=== PATIENT | male | born 1990 | race Caucasian/White ===

== ENCOUNTER → 2022-07-17 15:48 | Outpatient (BNVA) | payer SELFPAY | PROVIDERS: Visit Provider Emergency Medicine | DX: S99.922A Unspecified injury of left foot, initial encounter (principal); S99.912A Unspecified injury of left ankle, initial encounter | CPT/HCPCS: 73610; 73630 ==

== ENCOUNTER 2022-10-01 09:53 | Emergency (ER) | payer MEDICAID, SELFPAY ==
[2022-10-01 10:00] VITALS: BP 133/90; PULSE 107; RESP 16; TEMP 36.4; O2SAT 96; BMI 28.7
--- NOTE | 2022-10-01 10:10 | W.ED.ABDPA2 ---
Documented by User: MARKO Morel 10/02/22 07:27 HPI - Abdominal Pain General: Chief Complaint: Abdominal Pain Stated Complaint: abd pain Time Seen by Provider: 10/01/22 09:57 History of Present Illness: Patient is a 32-year-old male comes to the ED with abdominal pain. Patient has a history of H. pylori and stomach ulcers. He is not currently taking any daily PPI or antiacid medication. Abdominal pain started 4 days ago. Pain is located in the epigastric region. Pain worsens at night when he is laying down. He rates the current pain a 9 out of 10. Endorses having some nausea and one episode of emesis since onset of symptoms. Denies any fevers, diarrhea, constipation, bloody stool or black stools. Associated Symptoms: Reports nausea and vomiting; Denies chills, constipation, diarrhea, dysuria, fever(s), hematochezia, hematuria and melena Review of Systems Const: Denies: fever(s), chills or fatigue Eyes: Denies: change in vision or eye discomfort ENMT: Denies: throat pain, odynophagia, nasal discharge or nasal congestion Card: Denies: chest pain, palpitations, edema, swelling of feet/ankles, dyspnea on exertion or orthopnea Resp: Denies: dyspnea, productive cough or non-productive cough GI: Reports: abdominal pain (Epigastric pain), nausea and vomiting; Denies: diarrhea, constipation, hematochezia or melena : Denies: flank pain, difficulty urinating, dysuria or hematuria Musc: Denies: neck pain, back pain or extremity swelling Skin/Breast: Denies: rash or new lesions Neuro: Denies: headache(s), numbness in extremities or weakness in extremities PFS ED PFSH: Medical History ADHD (attention deficit hyperactivity disorder) Athlete's foot Dental caries Onychomycosis Psychiatric care Family History Mother CAD (coronary artery disease) Cancer lymphatic Denies family history of Diabetes Clotting disorder Dementia Hyperlipidemia Chronic kidney disease (CKD) Anesthesia complication Bleeding disorder Lung disease Hypertension Stroke Social History Smoking and tobacco status: never smoked Smoking risk assessment/counseling performed?: No Alcohol intake: never Desire information about alcohol rehabilitation?: No Counseling given: No Desire information about substance/drug rehabilitation?: No Counseling given: No Adopted: No Caregiver/support person: No Lives independently: Yes Marital status: Single Current occupational status: employed Current occupation: [employer] Current gender identity: Male Physical Exam Const: COMMON NORMALS: no acute distress, patient oriented x3 and alert HENMT: COMMON NORMALS: normocephalic HEAD & SCALP: normocephalic MOUTH: Normal oral and palatal mucosa present THROAT: posterior oropharynx normal and uvula midline Neck/C-Spine: COMMON NORMALS: supple GENERAL: Yes normal visual inspection Resp: COMMON NORMALS: normal respiratory effort, No retractions, No use of accessory muscles and clear to auscultation bilaterally AUSCULTATION: clear to auscultation bilaterally Cardio: COMMON NORMALS: regular rate, regular rhythm, S1 normal heart sound present, S2 normal heart sound present, No gallops present (Cardio), No clicks present (Cardio), No murmurs present (Cardio) and Peripheral pulses 2+ throughout RATE: regular rate RHYTHM: regular rhythm HEART SOUNDS: S1 normal heart sound present and S2 normal heart sound present PERIPHERAL PULSES: Peripheral pulses 2+ throughout GI: COMMON NORMALS: Normal to inspection, nondistended, normoactive bowel sounds present, Soft to palpation and no masses PALPATION: Yes Soft to palpation and Yes Tenderness to palpation present (GI) (Epigastric region and right upper quadrant) : COMMON NORMALS: Yes no CVA tenderness BLADDER/KIDNEY EXAM: Yes no CVA tenderness Back/Pelvis: COMMON NORMALS: no CVA tenderness Extremity: COMMON NORMALS: normal to inspection Neuro: COMMON NORMALS: patient oriented x3 SENSORIUM/ORIENTATION: Yes alert GAIT: Yes Normal gait present Skin: GENERAL SKIN EXAM: dry skin Course Vital Signs: Vital signs: Vital Signs Temperature 97.6 F 10/01/22 10:00 Pulse Rate 81 10/01/22 13:11 Respiratory Rate 18 10/01/22 11:34 Blood Pressure 117/74 10/01/22 13:11 Pulse Oximetry 97 10/01/22 13:11 Oxygen Delivery Me thod 10/01/22 11:46 MDM - Abdominal Pain Medical Decision Making Patient is a 32-year-old male comes to the ED with epigastric pain. He has a history of gastric ulcers and H. pylori. He describes it as a burning pain that worsens after he eats or lays flat. Patient appears nontoxic and in no acute distress or pain. He has some mild epigastric and right upper quadrant tenderness, but the rest of exam is benign. CBC and CMP were unremarkable. Ultrasound of the right upper quadrant showed no acute findings. Troponin was negative. EKG showed no acute findings. Patient was given a dose of GI cocktail and Protonix and his symptoms improved. Patient was stable for discharge home and diagnosed with gastritis. He was sent home with a prescription for Protonix and told to follow-up with his PCP in the next week. Return to ED precautions given. Patient understood and agreed with plan. Lab Data I reviewed the patient's lab results. : 10/01/22 10:16 10/01/22 10:16 Labs/Radiology: Radiology Impressions Abdomen Ultrasound 10/01/22 11:11 IMPRESSION: 1. Normal gallbladder. No bile duct dilatation. 2. Mild hepatomegaly and hepatic steatosis. 3. No ascites. Laboratory Results WBC 9.7 10^3/uL (4.0-10.0) 10/01/22 10:16 RBC 5.47 10^6/uL (4.1-5.3) H 10/01/22 10:16 Hgb 16.4 g/dL (11.7-16.6) 10/01/22 10:16 Hct 47.2 % (42.0-52.0) 10/01/22 10:16 MCV 86.3 fl (80-94) 10/01/22 10:16 MCH 30.0 pg (28.0-34.0) 10/01/22 10:16 MCHC 34.7 g/dL (30.0-36.0) 10/01/22 10:16 RDW 12.4 % (12.1-15.1) 10/01/22 10:16 Plt Count 457 10^3/cmm (130-400) H 10/01/22 10:16 MPV 9.0 fL (7.4-10.4) 10/01/22 10:16 Neut % (Auto) 63.2 % 10/01/22 10:16 Lymph % (Auto) 20.3 % 10/01/22 10:16 Shelby % (Auto) 9.0 % 10/01/22 10:16 Eos % (Auto) 6.7 % 10/01/22 10:16 Baso % (Auto) 0.5 % 10/01/22 10:16 Neut # (Auto) 6.11 10^3/uL (1.8-7.7) 10/01/22 10:16 Lymph # (Auto) 2.0 10^3/uL (0.8-4.8) 10/01/22 10:16 Shelby # (Auto) 0.9 10^3/uL (0.2-0.9) 10/01/22 10:16 Eos # (Auto) 0.7 10^3/uL (0.0-0.8) 10/01/22 10:16 Baso # (Auto) 0.1 10^3/uL (0.0-0.1) 10/01/22 10:16 Nucleated RBC % (auto) 0 % 10/01/22 10:16 Nucleated RBCs # 0.0 /100WBC 10/01/22 10:16 Sodium 137 mmol/L (136-145) 10/01/22 10:16 Potassium 3.8 mmol/L (3.5-5.1) 10/01/22 10:16 Chloride 98 mmol/L (98-107) 10/01/22 10:16 Carbon Dioxide 26 mmol/L (22-29) 10/01/22 10:16 Anion Gap 16.8 (5-19) 10/01/22 10:16 BUN 20 mg/dL (6-20) 10/01/22 10:16 Creatinine 0.7 mg/dL (0.7-1.2) 10/01/22 10:16 GFR Calculation 129.1 mL/min (90-130) 10/01/22 10:16 Glucose 102 mg/dL (65-115) 10/01/22 10:16 Calculated Osmolality 287 mOsm/kg (285-295) 10/01/22 10:16 Calcium 9.5 mg/dL (8.5-10.5) 10/01/22 10:16 Total Bilirubin 1.6 mg/dL (0.15-1.2) H 10/01/22 10:16 AST 12 U/L (0-40) 10/01/22 10:16 ALT 18 U/L (0-41) 10/01/22 10:16 Alkaline Phosphatase 90 U/L (40-130) 10/01/22 10:16 Troponin T Baseline 6 ng/L (0-15) 10/01/22 10:16 Troponin T 120 Minute 6.00 ng/L (0-15) 10/01/22 12:40 Delta Troponin T 0 ABS# (0-10) 10/01/22 12:40 Total Protein 7.6 g/dL (6.6-8.7) 10/01/22 10:16 Albumin 4.5 g/dL (3.5-5.2) 10/01/22 10:16 Globulin 3.1 g/dL (1.3-4.6) 10/01/22 10:16 Lipase 52 U/L (13-60) 10/01/22 10:16 H. pylori IgG Antibody Negative (Negative) 10/01/22 10:16 EKG Data EKG 1: EKG interpretation date: 10/01/22 Computer generated interpretation: [place] [address] Electrocardiograph Report Signed Patient: Chuck Jamison Unit #: [id number] : 1990 Age/Sex: 32 / M ADM Date: 10/01/22 Loc: ER Room/Bed: Attending Dr: Ordering Provider/Ordering MD: Mckay Reed Date of Service: 10/01/22 Procedure(s): ECG 12 lead EKG Accession Number(s): [id number] Report Number: [id number] ? [facility] ? Test Date:? ? 2022-10-01 Pat Name: ? ? Chuck Jamison ? Department: ? Patient ID: ? [id number] ? Room: ? Gender: ? ? ? Male ? 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 Requested By: Mckay Reed Order Number: [id number]? Reading : ? Jose Hirsch M.D. ? Measurements Intervals? [place]? Rate: ? 70 ? P:? 47 ND: ? 167? QRS:? 45 QRSD: ? 96 ? T:? 35 QT: ? 370? QTc:? 401? Interpretive Statements SINUS RHYTHM Compared to ECG 10/01/2022 10:50:44 No significant changes Electronically Signed On 10-01-2022 21:53:40 CDT by Jose Hirsch M.D. [id number] Dictated By: Jose Hirsch MD Signed By: Jose Hirsch MD Signed Date/Time: 10/01/222154 DD/ 1208 Discharge Plan Discharge Patient Disposition: Home Clinical Impression: Gastritis Qualifiers: Gastritis type: unspecified gastritis Chronicity: unspecified Gastritis bleeding: presence of bleeding unspecified Qualified Code(s): K29.70 - Gastritis, unspecified, without bleeding Condition: Stable Prescriptions: New pantoprazole 40 mg tablet,delayed release (DR/EC) 40 mg PO DAILY Qty: 30 0RF ondansetron 4 mg tablet,disintegrating 4 mg PO Q8H PRN (Reason: nausea and vomiting) Qty: 15 0RF No Action clotrimazole 1 % cream 1 applic topical TID Qty: 90 1RF Adderall 30 mg tablet 30 mg PO QAM terbinafine HCl 250 mg tablet 250 mg PO QAM Discharge Orders: Discharge ED (Routine); Ordered 10/01/22 Ordered By: Mckay Reed Discharge Diet: Regular Discharge Activity: Resume usual activity Patient Instructions: Gastritis (ED) Activity Restrictions/Additional Instructions: Follow-up with medical provider as directed in the next 5 to 7 days reevaluation. Take medications as prescribed. Return to the ER or your medical provider if condition worsens. Please read and understand discharge instructions. Thank you for choosing [facility] for your healthcare needs today. Please realize this is an emergency room and that we are providing you with a medical screening exam and this may not be complete and all inclusive of all the testing and or work up that you may need to determine your ailment or severity of your illness. It is very important that you follow up as instructed or that you return to the Emergency Department should you have concerns or if your condition changes or worsens in any way. Stand Alone Forms: Work/School Release Coding Level of Care Code ED Cow Washer for Chg Fwd Exam Comprehensive Documented by User: Carrington Rivas DO 10/03/22 07:26 HPI - Abdominal Pain General: Chief Complaint: Abdominal Pain Stated Complaint: abd pain Time Seen by Provider: 10/01/22 09:57 [facility] ED PFSH: Medical History ADHD (attention deficit hyperactivity disorder) Athlete's foot Dental caries Onychomycosis Psychiatric care Family History Mother CAD (coronary artery disease) Cancer lymphatic Denies family history of Diabetes Clotting disorder Dementia Hyperlipidemia Chronic kidney disease (CKD) Anesthesia complication Bleeding disorder Lung disease Hypertension Stroke Social History Smoking and tobacco status: never smoked Smoking risk assessment/counseling performed?: No Alcohol intake: never Desire information about alcohol rehabilitation?: No Counseling given: No Desire information about substance/drug rehabilitation?: No Counseling given: No Adopted: No Caregiver/support person: No Lives independently: Yes Marital status: Single Current occupational status: employed Current occupation: [employer] Current gender identity: Male Course Vital Signs: Vital signs: Vital Signs Temperature 97.6 F 10/01/22 10:00 Pulse Rate 81 10/01/22 13:11 Respiratory Rate 18 10/01/22 11:34 Blood Pressure 117/74 10/01/22 13:11 Pulse Oximetry 97 10/01/22 13:11 Oxygen Delivery Me thod 10/01/22 11:46 MDM - Abdominal Pain Medical Decision Making Patient is a 32-year-old male comes to the ED with epigastric pain. He has a history of gastric ulcers and H. pylori. He describes it as a burning pain that worsens after he eats or lays flat. Patient appears nontoxic and in no acute distress or pain. He has some mild epigastric and right upper quadrant tenderness, but the rest of exam is benign. CBC and CMP were unremarkable. Ultrasound of the right upper quadrant showed no acute findings. Troponin was negative. EKG showed no acute findings. Patient was given a dose of GI cocktail and Protonix and his symptoms improved. Patient was stable for discharge home and diagnosed with gastritis. He was sent home with a prescription for Protonix and told to follow-up with his PCP in the next week. Return to ED precautions given. Patient understood and agreed with plan. Chart reviewed and patient discussed with midlevel. Agree with assessment and plan. Lab Data : 10/01/22 10:16 10/01/22 10:16 Labs/Radiology: Radiology Impressions Abdomen Ultrasound 10/01/22 11:11 IMPRESSION: 1. Normal gallbladder. No bile duct dilatation. 2. Mild hepatomegaly and hepatic steatosis. 3. No ascites. Laboratory Results WBC 9.7 10^3/uL (4.0-10.0) 10/01/22 10:16 RBC 5.47 10^6/uL (4.1-5.3) H 10/01/22 10:16 Hgb 16.4 g/dL (11.7-16.6) 10/01/22 10:16 Hct 47.2 % (42.0-52.0) 10/01/22 10:16 MCV 86.3 fl (80-94) 10/01/22 10:16 MCH 30.0 pg (28.0-34.0) 10/01/22 10:16 MCHC 34.7 g/dL (30.0-36.0) 10/01/22 10:16 RDW 12.4 % (12.1-15.1) 10/01/22 10:16 Plt Count 457 10^3/cmm (130-400) H 10/01/22 10:16 MPV 9.0 fL (7.4-10.4) 10/01/22 10:16 Neut % (Auto) 63.2 % 10/01/22 10:16 Lymph % (Auto) 20.3 % 10/01/22 10:16 Shelby % (Auto) 9.0 % 10/01/22 10:16 Eos % (Auto) 6.7 % 10/01/22 10:16 Baso % (Auto) 0.5 % 10/01/22 10:16 Neut # (Auto) 6.11 10^3/uL (1.8-7.7) 10/01/22 10:16 Lymph # (Auto) 2.0 10^3/uL (0.8-4.8) 10/01/22 10:16 [place] # (Auto) 0.9 10^3/uL (0.2-0.9) 10/01/22 10:16 Eos # (Auto) 0.7 10^3/uL (0.0-0.8) 10/01/22 10:16 Baso # (Auto) 0.1 10^3/uL (0.0-0.1) 10/01/22 10:16 Nucleated RBC % (auto) 0 % 10/01/22 10:16 Nucleated RBCs # 0.0 /100WBC 10/01/22 10:16 Sodium 137 mmol/L (136-145) 10/01/22 10:16 Potassium 3.8 mmol/L (3.5-5.1) 10/01/22 10:16 Chloride 98 mmol/L (98-107) 10/01/22 10:16 Carbon Dioxide 26 mmol/L (22-29) 10/01/22 10:16 Anion Gap 16.8 (5-19) 10/01/22 10:16 BUN 20 mg/dL (6-20) 10/01/22 10:16 Creatinine 0.7 mg/dL (0.7-1.2) 10/01/22 10:16 GFR Calculation 129.1 mL/min (90-130) 10/01/22 10:16 Glucose 102 mg/dL (65-115) 10/01/22 10:16 Calculated Osmolality 287 mOsm/kg (285-295) 10/01/22 10:16 Calcium 9.5 mg/dL (8.5-10.5) 10/01/22 10:16 Total Bilirubin 1.6 mg/dL (0.15-1.2) H 10/01/22 10:16 AST 12 U/L (0-40) 10/01/22 10:16 ALT 18 U/L (0-41) 10/01/22 10:16 Alkaline Phosphatase 90 U/L (40-130) 10/01/22 10:16 Troponin T Baseline 6 ng/L (0-15) 10/01/22 10:16 Troponin T 120 Minute 6.00 ng/L (0-15) 10/01/22 12:40 Delta Troponin T 0 ABS# (0-10) 10/01/22 12:40 Total Protein 7.6 g/dL (6.6-8.7) 10/01/22 10:16 Albumin 4.5 g/dL (3.5-5.2) 10/01/22 10:16 Globulin 3.1 g/dL (1.3-4.6) 10/01/22 10:16 Lipase 52 U/L (13-60) 10/01/22 10:16 H. pylori IgG Antibody Negative (Negative) 10/01/22 10:16 Discharge Plan Discharge Patient Disposition: Home Clinical Impression: Gastritis Qualifiers: Gastritis type: unspecified gastritis Chronicity: unspecified Gastritis bleeding: presence of bleeding unspecified Qualified Code(s): K29.70 - Gastritis, unspecified, without bleeding Condition: Stable Prescriptions: New pantoprazole 40 mg tablet,delayed release (DR/EC) 40 mg PO DAILY Qty: 30 0RF ondansetron 4 mg tablet,disintegrating 4 mg PO Q8H PRN (Reason: nausea and vomiting) Qty: 15 0RF No Action clotrimazole 1 % cream 1 applic topical TID Qty: 90 1RF Adderall 30 mg tablet 30 mg PO QAM terbinafine HCl 250 mg tablet 250 mg PO QAM Discharge Orders: Discharge ED (Routine); Ordered 10/01/22 Ordered By: Mckay Reed Discharge Diet: Regular Discharge Activity: Resume usual activity Patient Instructions: Gastritis (ED) Activity Restrictions/Additional Instructions: Follow-up with medical provider as directed in the next 5 to 7 days reevaluation. Take medications as prescribed. Return to the ER or your medical provider if condition worsens. Please read and understand discharge instructions. Thank you for choosing [facility] for your healthcare needs today. Please realize this is an emergency room and that we are providing you with a medical screening exam and this may not be complete and all inclusive of all the testing and or work up that you may need to determine your ailment or severity of your illness. It is very important that you follow up as instructed or that you return to the Emergency Department should you have concerns or if your condition changes or worsens in any way. Stand Alone Forms: Work/School Release Coding Level of Care Code ED Cow Washer for Dale Dumont Exam Comprehensive
[2022-10-01 10:20] VITALS: BP 131/90; PULSE 83; O2SAT 93
[2022-10-01 10:26] LABS: Basophils # 0.1 10^3/uL (0.0-0.1); Basophils % 0.5 %; Eosinophils # 0.7 10^3/uL (0.0-0.8); Eosinophils % 6.7 %; Hematocrit 47.2 % (42.0-52.0); Hemoglobin 16.4 g/dL (11.7-16.6); Lymphocytes % 20.3 %; Mean Corpuscular HGB Conc 34.7 g/dL (30.0-36.0); Mean Corpuscular Volume 86.3 fl (80-94); Monocytes # 0.9 10^3/uL (0.2-0.9); Neutrophils # 6.11 10^3/uL (1.8-7.7); Neutrophils % 63.2 %; Nucleated Red Blood Cells % 0 %; Platelet Count 457 10^3/cmm (130-400); Red Blood Count 5.47 10^6/uL (4.1-5.3); Red Cell Distribution Width 12.4 % (12.1-15.1); White Blood Count 9.7 10^3/uL (4.0-10.0)
[2022-10-01] MEDS: ondansetron 2 mg/ML SDV 2 mL 4 MG IVP (10:38)
[2022-10-01] MEDS: pantoprazole 40 mg SDV IVP (10:38)
[2022-10-01] MEDS: sodium chloride 0.9% 500 ML 999 ML IV (10:38)
[2022-10-01 10:45] LABS: Troponin(5th) Baseline 6 ng/L (0-15)
[2022-10-01 10:46] VITALS: PULSE 85; O2SAT 93
[2022-10-01 10:46] LABS: Alanine Aminotransferase 18 U/L (0-41); Albumin Level 4.5 g/dL (3.5-5.2); Alkaline Phosphatase 90 U/L (40-130); Anion Gap 16.8 (5-19); Aspartate Amino Transferase 12 U/L (0-40); Blood Urea Nitrogen 20 mg/dL (6-20); Calcium 9.5 mg/dL (8.5-10.5); Carbon Dioxide 26 mmol/L (22-29); Chloride 98 mmol/L (98-107); Globulin 3.1 g/dL (1.3-4.6); Glomerular Filtration Rate 129.1 mL/min (90-130); Glucose 102 mg/dL (65-115); Lipase 52 U/L (13-60); Osmolality Calculated 287 mOsm/kg (285-295); Potassium 3.8 mmol/L (3.5-5.1); Sodium 137 mmol/L (136-145); Total Bilirubin 1.6 mg/dL (0.15-1.2); Total Protein 7.6 g/dL (6.6-8.7)
--- NOTE | 2022-10-01 10:50 | ECG_ITS ---
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 Measurements Intervals [place] Rate: 78 P: 47 OR: 161 QRS: 46 QRSD: 101 T: 37 QT: 366 QTc: 417 Interpretive Statements SINUS RHYTHM No previous ECG available for comparison Electronically Signed On 10-01-2022 21:44:33 CDT by Jose Hirsch M.D. [email or web address]/store/[id number]
[2022-10-01 10:59] LABS: H. Pylori IgG Antibody Negative (Negative)
--- NOTE | 2022-10-01 11:11 | US_ITS ---
WS: [id number] RIGHT UPPER QUADRANT ULTRASOUND HISTORY: RUQ and epigastric pain and tenderness COMPARISON: None available. Liver: 18.0 cm in length. Liver is mildly enlarged and mildly echogenic. No mass identified. No bile duct dilatation. Portal Vein: Normal hepatopetal flow with monophasic waveform. Gallbladder: Normally distended gallbladder with no stones or wall thickening. CBD: 0.2 cm Pancreas: Poorly visualized due to bowel gas. Right kidney: 11.8 cm in length. Normal size and echogenicity. No hydronephrosis or mass. Aorta and IVC: Unremarkable abdominal aorta and IVC. No ascites. US/US abdomen limited 96161 IMPRESSION: 1. Normal gallbladder. No bile duct dilatation. 2. Mild hepatomegaly and hepatic steatosis. 3. No ascites.
[2022-10-01 11:34] VITALS: RESP 18; O2SAT 98
[2022-10-01] MEDS: morphine 4 mg/mL SDV 1 mL IVP (11:34)
[2022-10-01] MEDS: lidocaine 2% viscous 15 ML, aluminum-mag hydrox-simethicon 30 ML, sucralfate oral liq 1 GM PO (11:35)
[2022-10-01 11:46] VITALS: BP 132/85; PULSE 89; O2SAT 94
--- NOTE | 2022-10-01 12:08 | ECG_ITS ---
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 Measurements Intervals [place] Rate: 70 P: 47 OR: 167 QRS: 45 QRSD: 96 T: 35 QT: 370 QTc: 401 Interpretive Statements SINUS RHYTHM Compared to ECG 10/01/2022 10:50:44 No significant changes Electronically Signed On 10-01-2022 21:53:40 CDT by Jose Hirsch M.D. [id number]
[2022-10-01 13:11] VITALS: BP 117/74; PULSE 81; O2SAT 97
[2022-10-01 13:31] LABS: Troponin 5 2HR Delta 0 ABS# (0-10)
== END 2022-10-01 13:10 | disposition home or self-care (01) ==
PROVIDERS: Emergency Provider Physician Assistant
DX: K29.70 Gastritis, unspecified, without bleeding (principal)
CPT/HCPCS: 36415; 76705; 80053; 83690; 84484; 85025; 86677; 93005; 96361; 96374; 96375; 99285; C9113; J2270; J2405; J7040

== ENCOUNTER 2023-03-24 18:09 | Emergency (ER) | payer MEDICAID, SELFPAY ==
[2023-03-24 18:48] VITALS: BP 129/77; PULSE 67; RESP 18; TEMP 36.8; O2SAT 99; BMI 25.5
--- NOTE | 2023-03-24 19:23 | ED_ITS ---
HPI - Abdominal Pain General: Chief Complaint: Abdominal Pain Stated Complaint: Throat and abd pain Time Seen by Provider: 03/24/23 19:22 History of Present Illness: 32-year-old male patient comes in today with discomfort in the upper abdomen on the left side. Patient reports a history of H. pylori with treatment done in 2018. Patient does use pantoprazole and Reglan occasionally for his symptoms. Patient appears nontoxic. Patient expresses worry for worsening symptoms and co ncern for needing further testing. Patient reports over the last 6 months he has had increasing discomfort to the stomach and then some throat discomfort now. [facility] ED PFSH: Medical History (Updated 03/24/23 @ 20:43 by TESSA Ramirez) ADHD (attention deficit hyperactivity disorder) Athlete's foot Broken tooth due to trauma without complication Dental caries Gastritis and duodenitis GERD (gastroesophageal reflux disease) Onychomycosis Psychiatric care Family History Mother CAD (coronary artery disease) Cancer lymphatic Denies family history of Diabetes Clotting disorder Dementia Hyperlipidemia Chronic kidney disease (CKD) Anesthesia complication Bleeding disorder Lung disease Hypertension Stroke Social History Smoking and tobacco status: never smoked Smoking risk assessment/counseling performed?: No Alcohol intake: never Desire information about alcohol rehabilitation?: No Counseling given: No Substance/Drug Use: never Desire information about substance/drug rehabilitation?: No Counseling given: No Adopted: No Caregiver/support person: No Lives independently: Yes Marital status: Single Current occupational status: employed Current occupation: [employer] Current gender identity: Male Physical Exam Const: COMMON NORMALS: alert HENMT: COMMON NORMALS: normocephalic HEAD & SCALP: normocephalic THROAT: posterior oropharynx normal Neck/C-Spine: COMMON NORMALS: full ROM Resp: COMMON NORMALS: normal respiratory effort Cardio: COMMON NORMALS: regular rate RATE: regular rate GI: COMMON NORMALS: Soft to palpation AUSCULTATION: Yes normoactive bowel sounds PALPATION: Yes Soft to palpation and Yes Tenderness to palpation present (GI) Details: LUQ Extremity: COMMON NORMALS: normal to inspection Neuro: SENSORIUM/ORIENTATION: Yes alert Skin: COMMON NORMALS: turgor normal GENERAL SKIN EXAM: turgor normal Course Vital Signs: Vital signs: Vital Signs Temperature 98.2 F 03/24/23 18:48 Pulse Rate 69 03/24/23 21:12 Respiratory Rate 18 03/24/23 21:12 Blood Pressure 122/82 03/24/23 21:12 Pulse Oximetry 100 03/24/23 21:12 Oxygen Delivery Me thod Room Air 03/24/23 18:48 MDM - Abdominal Pain Medical Decision Making 42-year-old male patient comes in today with persistent epigastric pain. Patient states symptoms been going on for months now. Patient reports worsening symptoms over the past week. Patient does have a history of H. pylori infection. On exam lungs were clear to auscultation. Skin was warm and dry. Posterior pharynx was normal. Abdomen was soft with some left upper quadrant abdominal discomfort. Bowel sounds are present. Differential diagnosis includes but not limited to peptic ulcer disease, gastritis, GERD, gallbladder disease, pancreatitis. Laboratory values were unremarkable. No signs of acute abdomen requiring surgery at this time. Reviewed exam with patient with recommendations for treatment and follow-up. Recommended endoscopy for further evaluation. Patient reported understanding agreed to plan. Lab Data 03/24/23 17:59 03/24/23 17:59 Labs/Radiology: Radiology Impressions Chest X-Ray 03/24/23 19:41 IMPRESSION: No acute findings. Laboratory Results WBC 5.5 10^3/uL (4.0-10.0) 03/24/23 17:59 RBC 5.31 10^6/uL (4.1-5.3) H 03/24/23 17:59 Hgb 15.6 g/dL (11.7-16.6) 03/24/23 17:59 Hct 46.9 % (42.0-52.0) 03/24/23 17:59 MCV 88.3 fl (80-94) 03/24/23 17:59 MCH 29.4 pg (28.0-34.0) 03/24/23 17:59 MCHC 33.3 g/dL (30.0-36.0) 03/24/23 17:59 RDW 12.0 % (12.1-15.1) L 03/24/23 17:59 Plt Count 365 10^3/cmm (130-400) 03/24/23 17:59 MPV 8.6 fL (7.4-10.4) 03/24/23 17:59 Neut % (Auto) 57.0 % 03/24/23 17:59 Lymph % (Auto) 29.3 % 03/24/23 17:59 [place] % (Auto) 8.4 % 03/24/23 17:59 Eos % (Auto) 4.4 % 03/24/23 17:59 Baso % (Auto) 0.7 % 03/24/23 17:59 Neut # (Auto) 3.13 10^3/uL (1.8-7.7) 03/24/23 17:59 Lymph # (Auto) 1.6 10^3/uL (0.8-4.8) 03/24/23 17:59 [place] # (Auto) 0.5 10^3/uL (0.2-0.9) 03/24/23 17:59 Eos # (Auto) 0.2 10^3/uL (0.0-0.8) 03/24/23 17:59 Baso # (Auto) 0.0 10^3/uL (0.0-0.1) 03/24/23 17:59 Nucleated RBC % (auto) 0 % 03/24/23 17:59 Nucleated RBCs # 0.0 /100WBC 03/24/23 17:59 Sodium 135 mmol/L (136-145) L 03/24/23 17:59 Potassium 4.1 mmol/L (3.5-5.1) 03/24/23 17:59 Chloride 99 mmol/L (98-107) 03/24/23 17:59 Carbon Dioxide 28 mmol/L (22-29) 03/24/23 17:59 Anion Gap 12.1 (5-19) 03/24/23 17:59 BUN 9 mg/dL (6-20) 03/24/23 17:59 Creatinine 0.6 mg/dL (0.7-1.2) L 03/24/23 17:59 GFR Calculation 154.2 mL/min (90-130) H 03/24/23 17:59 Glucose 88 mg/dL (65-115) 03/24/23 17:59 Calculated Osmolality 278 mOsm/kg (285-295) L 03/24/23 17:59 Calcium 8.9 mg/dL (8.5-10.5) 03/24/23 17:59 Total Bilirubin 0.3 mg/dL (0.15-1.2) 03/24/23 17:59 AST 8 U/L (0-40) 03/24/23 17:59 ALT 9 U/L (0-41) 03/24/23 17:59 Alkaline Phosphatase 75 U/L (40-130) 03/24/23 17:59 Total Protein 7.4 g/dL (6.6-8.7) 03/24/23 17:59 Albumin 4.7 g/dL (3.5-5.2) 03/24/23 17:59 Globulin 2.7 g/dL (1.3-4.6) 03/24/23 17:59 Lipase 27 U/L (13-60) 03/24/23 17:59 Group A Strep Rapid Negative (Negative) 03/24/23 19:18 Discharge Plan Discharge Patient Disposition: Home Clinical Impression: History of Helicobacter pylori infection GERD (gastroesophageal reflux disease) Qualifiers: Esophagitis presence: esophagitis presence not specified Qualified Code(s): K21.9 - Gastro-esophageal reflux disease without esophagitis Condition: Stable Prescriptions: No Action clotrimazole 1 % cream 1 applic topical TID Qty: 90 1RF pantoprazole 40 mg tablet,delayed release (DR/EC) 40 mg PO DAILY Qty: 90 1RF metoclopramide HCl [Reglan] 10 mg tablet 10 mg PO QID PRN (Reason: nausea and acid reflux) Qty: 120 5RF Rx Instructions: Take 1 before meals and 1 hour before bedtime dextroamphetamine-amphetamine [Adderall] 20 mg tablet 20 mg PO BID 30 Days Qty: 60 0RF terbinafine HCl 250 mg tablet 250 mg PO QAM Discharge Orders: Discharge ED (Routine); Ordered 03/24/23 Ordered By: Reyes Devi Referrals: Eddie Lucio MD [Primary Care Provider] - Discharge Diet: Usual diet Discharge Activity: Increase activity as tolerated Patient Instructions: Diet for Stomach Ulcers and Gastritis (ED), GERD (Gastroesophageal Reflux Disease) (ED) Activity Restrictions/Additional Instructions: Continue with routine medication. completion manager will contact you regarding follow-up appointment for endoscopy and further evaluation. Return to ER for high fever, blood in vomit or stool, or new concerns. 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
--- NOTE | 2023-03-24 19:41 | XRR_ITS ---
PROCEDURE INFORMATION: Exam: XR Chest Exam date and time: 03/24/2023 7:50 PM Age: 32 years old Clinical indication: Dyspnea TECHNIQUE: Imaging protocol: Radiologic exam of the chest. Views: 1 view. COMPARISON: No relevant prior studies available. FINDINGS: Lungs: Unremarkable. No consolidation. Pleural spaces: Unremarkable. No pleural effusion. No pneumothorax. Heart/Mediastinum: Unremarkable. No cardiomegaly. Bones/joints: Unremarkable. XR/XR chest 1V portable [id number] IMPRESSION: No acute findings.
[2023-03-24 19:51] LABS: Rapid Strep A Test Negative (Negative)
[2023-03-24 20:09] LABS: Basophils % 0.7 %; Eosinophils # 0.2 10^3/uL (0.0-0.8); Eosinophils % 4.4 %; Hematocrit 46.9 % (42.0-52.0); Hemoglobin 15.6 g/dL (11.7-16.6); Lymphocytes # 1.6 10^3/uL (0.8-4.8); Lymphocytes % 29.3 %; Mean Corpuscular HGB Conc 33.3 g/dL (30.0-36.0); Mean Corpuscular Hemoglobin 29.4 pg (28.0-34.0); Mean Corpuscular Volume 88.3 fl (80-94); Mean Platelet Volume 8.6 fL (7.4-10.4); Monocytes # 0.5 10^3/uL (0.2-0.9); Monocytes % 8.4 %; Neutrophils # 3.13 10^3/uL (1.8-7.7); Nucleated Red Blood Cells % 0 %; Platelet Count 365 10^3/cmm (130-400); Red Blood Count 5.31 10^6/uL (4.1-5.3); White Blood Count 5.5 10^3/uL (4.0-10.0)
[2023-03-24 20:29] LABS: Alanine Aminotransferase 9 U/L (0-41); Albumin Level 4.7 g/dL (3.5-5.2); Alkaline Phosphatase 75 U/L (40-130); Anion Gap 12.1 (5-19); Aspartate Amino Transferase 8 U/L (0-40); Blood Urea Nitrogen 9 mg/dL (6-20); Calcium 8.9 mg/dL (8.5-10.5); Carbon Dioxide 28 mmol/L (22-29); Chloride 99 mmol/L (98-107); Globulin 2.7 g/dL (1.3-4.6); Glomerular Filtration Rate 154.2 mL/min (90-130); Glucose 88 mg/dL (65-115); Lipase 27 U/L (13-60); Osmolality Calculated 278 mOsm/kg (285-295); Potassium 4.1 mmol/L (3.5-5.1); Sodium 135 mmol/L (136-145); Total Bilirubin 0.3 mg/dL (0.15-1.2); Total Protein 7.4 g/dL (6.6-8.7)
[2023-03-24 21:12] VITALS: BP 122/82; PULSE 69; RESP 18; O2SAT 100
--- NOTE | 2023-03-25 08:52 | DCPLANNER ---
Addendum entered by Leni Wilcox 04/02/23 10:12: [facility] faxed caser in patients information stating that patient would need to be referred to [facility]. pre school manager faxed patients information to [facility] on 04.01.23 pre school manager called [facility] to confirm that patients information had been received. pre school manager was told that clinic had received patients information, that it would be reviewed and clinic would call patient with appointment information. pre school manager called patient and updated patient that his referral had been sent to [facility] for review, and clinic would be calling patient with appointment information. Addendum entered by Leni Wilcox 03/27/23 09:24: Patient called caser in back, stated that he wanted to be referred to [facility]. pre school manager faxed patients information to [facility]. Addendum entered by Leni Wilcox 03/25/23 14:10: pre school manager received the following message from the general surgery clinic regarding follow up appointment: Patient has [facility], please refer elsewhere pre school manager called patient to inform patient of this, unable to speak with patient at this time, a voicemail was left for patient to return wrapper caser phone call. Original Note: pre school manager had message to schedule a follow up appointment for patient with general surgery. pre school manager sent patients information to the front office staff at general surgery. Patients information will be printed and reviewed. Clinic will call patient with appointment information.
== END 2023-03-24 21:16 | disposition home or self-care (01) ==
PROVIDERS: Emergency Provider Nurse Practitioner Family; PCP Family Medicine Adult Medicine
DX: K21.9 Gastro-esophageal reflux disease without esophagitis (principal); Z86.19 Personal history of other infectious and parasitic diseases
CPT/HCPCS: 71045; 80053; 83690; 85025; 87081; 87880; 99284

== ENCOUNTER 2023-08-12 11:41 | Emergency (ER) | payer MEDICAID, SELFPAY ==
[2023-08-12] VITALS (9 sets, daily range): BP systolic 111–145; BP diastolic 61–91; PULSE 79–104; RESP 14–18; TEMP 37.1; O2SAT 94–99; BMI 22.9
--- NOTE | 2023-08-12 11:56 | XR_ITS ---
WS: [id number] Exam: XR chest 1V portable [id number] Date/Time of Exam: 08/12/2023 12:10 PM Reason For Exam: unresponsive Comparison 03/24/2023. Findings: The lungs are clear and fully expanded. Costophrenic angles are sharp. No infiltrates. Bronchovascula r relief appears normal. Cardiac silhouette is unremarkable. Bony elements are intact. IMPRESSION: Unremarkable chest radiograph.
--- NOTE | 2023-08-12 11:56 | W.ED.PSYCHS ---
HPI - Psych General: Chief Complaint: Psychiatric Symptoms Stated Complaint: MHE Time Seen by Provider: 08/12/23 11:43 Source: EMS Mode of arrival: EMS Limitations: altered mental status (sleepy and barely responsive) History of Present Illness: This 33-year-old male with a history of ADHD reportedly came out of his house screaming. Then he sat in a chair in the rain for an unknown amount of time. Apparently, neighbors called EMS. EMS notes that patient was nonverbal when they got to him and he could not provide any history. 5 mg Haldol and 2 mg of Ativan IM were given prior to arrival. Here in the ER, patient appears sleepy, responds to noxious stimuli but he is unable to provide any verbal feedback. Currently there is no family member or friend to provide any additional history. He is maintaining his airway with normal oxygen saturation and normal vital signs. Review of Systems General: Reports: ROS unobtainable due to mental status PFS ED PFSH: Medical History (Updated 08/12/23 @ 16:36 by Vinny Catherine MD) ADHD (attention deficit hyperactivity disorder) Athlete's foot Broken tooth due to trauma without complication Dental caries Gastritis and duodenitis GERD (gastroesophageal reflux disease) Onychomycosis Psychiatric care Family History Mother CAD (coronary artery disease) Cancer lymphatic Denies family history of Diabetes Clotting disorder Dementia Hyperlipidemia Chronic kidney disease (CKD) Anesthesia complication Bleeding disorder Lung disease Hypertension Stroke Social History Smoking and tobacco status: never smoked Smoking risk assessment/counseling performed?: No Alcohol intake: never Desire information about alcohol rehabilitation?: No Counseling given: No Substance/Drug Use: never Desire information about substance/drug rehabilitation?: No Counseling given: No Adopted: No Caregiver/support person: No Lives independently: Yes Marital status: Single Current occupational status: employed Current occupation: [employer] Current gender identity: Male Physical Exam Const: COMMON NORMALS: no acute distress HENMT: COMMON NORMALS: normocephalic HEAD & SCALP: normocephalic Neck/C-Spine: COMMON NORMALS: full ROM and supple Chest: COMMONS NORMALS: normal inspection of the chest Resp: COMMON NORMALS: normal respiratory effort, No retractions, No use of accessory muscles and clear to auscultation bilaterally AUSCULTATION: clear to auscultation bilaterally Cardio: COMMON NORMALS: regular rate, regular rhythm and No murmurs present (Cardio) RATE: regular rate RHYTHM: regular rhythm GI: COMMON NORMALS: Normal to inspection, nondistended, normoactive bowel sounds present Extremity: GENERAL: Yes normal exam except as noted Course Reevaluation(s): Reevaluation #1: Patient reevaluated. He is more responsive than he was when he first got here. He is able to open his eyes to name calling but is unable to engage. RN (Kathy) was asked to call the contact numbers on patient's chart. She called and did not get any answers. She will try again later. Time: 13:05 Reevaluation #2: Patient reevaluated. Now, he is at his baseline. He is alert and answering questions appropriately. He tells me he does not remember what happened. He remembers sitting on a chair and falling asleep. He denies any suicidal or homicidal thoughts. I asked him to provide us with a urine sample which he gladly dad. Time: 15:24 Reevaluation #3: Patient now says his stomach hurts from his ulcers. He was offered Tylenol which he declined. He states that morphine works for him. I do not see any indication to give him IV morphine at this time especially with an abdomen that was not tender and nonsurgical in nature. Time: 16:34 Vital Signs: Vital signs: Vital Signs Temperature 98.8 F 08/12/23 11:45 Pulse Rate 80 08/12/23 14:30 Respiratory Rate 18 08/12/23 14:30 Blood Pressure 112/73 08/12/23 14:30 Pulse Oximetry 97 08/12/23 14:30 Oxygen Delivery Me thod Room Air 08/12/23 11:45 MDM - Psych Medical Decision Making Medical decision making: History as above Patient was brought in by ambulance after they had given him Haldol and Ativan. I believe that these contribute to his sleepy/unresponsive nature when he got to the ER. With time, patient became alert and oriented to baseline. He tells me that he does not remember all that happened but remembers sitting on a chair and falling asleep. Clinical exam is unremarkable. Completed results are unremarkable except for urine drug screen that is positive for amphetamines and marijuana. However, patient is on Adderall which will explain the positive amphetamine, He had initially told me he does not smoke marijuana but his urine is positive for same. CT brain is negative for any acute intracranial process. Given that he is back to his baseline and with stable vital signs, I do not see any indication to admit him. He exhibits no psychiatric symptoms at this time that would warrant psych evaluation. He was discharged home and advised to follow-up with his primary care provider. Reasons to return were discussed. Patient verbalized understanding and agrees with the plan. Lab Data 08/12/23 12:25 08/12/23 12:25 Laboratory Results WBC 8.82 10^3/uL (3.29-11.43) 08/12/23 12: RBC 5.38 10^6/uL (3.85-5.65) 08/12/23 12:25 Hgb 16.00 g/dL (11.27-16.99) 08/12/23 12:25 Hct 46.6 % (37-53) 08/12/23 12:25 MCV 86.6 fl (82-101) 08/12/23 12:25 MCH 29.7 pg (27-33) 08/12/23 12: MCHC 34.3 g/dL (30-55) 08/12/23 12:25 RDW 11.9 % (12.1-15.1) L 08/12/23 12: Plt Count 423 10^3/cmm (157-399) H 08/12/23 12:25 MPV 8.8 fL (7.4-10.4) 08/12/23 12:25 Neut % (Auto) 69.3 % 08/12/23 12:25 Lymph % (Auto) 18.9 % 08/12/23 12:25 [place] % (Auto) 10.7 % 08/12/23 12:25 Eos % (Auto) 0.5 % 08/12/23 12:25 Baso % (Auto) 0.3 % 08/12/23 12: Neut # (Auto) 6.11 10^3/uL (1.8-7.7) 08/12/23 12:25 Lymph # (Auto) 1.7 10^3/uL (0.8-4.8) 08/12/23 12:25 [place] # (Auto) 0.9 10^3/uL (0.2-0.9) 08/12/23 12:25 Eos # (Auto) 0.0 10^3/uL (0.0-0.8) 08/12/23 12:25 Baso # (Auto) 0.0 10^3/uL (0.0-0.1) 08/12/23 12:25 Nucleated RBC % (auto) 0 % 08/12/23 12:25 Nucleated RBCs # 0.0 /100WBC 08/12/23 12:25 Sodium 137 mmol/L (136-145) 08/12/23 12:25 Potassium 5.2 mmol/L (3.5-5.1) H 08/12/23 12:25 Chloride 99 mmol/L (98-107) 08/12/23 12:25 Carbon Dioxide 28 mmol/L (22-29) 08/12/23 12:25 Anion Gap 15.2 (5-19) 08/12/23 12:25 BUN 18 mg/dL (6-20) 08/12/23 12:25 Creatinine 0.8 mg/dL (0.7-1.2) 08/12/23 12:25 GFR Calculation 110.0 mL/min (90-130) 08/12/23 12:25 Glucose 104 mg/dL (65-115) 08/12/23 12:25 Calculated Osmolality 286 mOsm/kg (285-295) 08/12/23 12:25 Calcium 9.7 mg/dL (8.5-10.5) 08/12/23 12:25 Total Bilirubin 0.9 mg/dL (0.15-1.2) 08/12/23 12:25 AST 14 U/L (0-40) 08/12/23 12:25 ALT 10 U/L (0-41) 08/12/23 12:25 Alkaline Phosphatase 78 U/L (40-130) 08/12/23 12:25 Total Protein 7.9 g/dL (6.6-8.7) 08/12/23 12:25 Albumin 5.0 g/dL (3.5-5.2) 08/12/23 12:25 Globulin 2.9 g/dL (1.3-4.6) 08/12/23 12:25 Urine Color Dark yellow (Yellow) 08/12/23 15:25 Urine Appearance Clear (CLEAR) 08/12/23 15:25 Urine pH 5 (5-7) 08/12/23 15:25 Ur Specific [place] 1.020 (1.005-1.030) 08/12/23 15:25 Urine Protein 1+ (Negative) H 08/12/23 15:25 Urine Glucose (UA) Norm (Normal) 08/12/23 15:25 Urine Ketones 2+ (Negative) H 08/12/23 15:25 Urine Blood Neg (Negative) 08/12/23 15:25 Urine Nitrate Negative (Negative) 08/12/23 15:25 Urine Bilirubin 1+ (Negative) H 08/12/23 15:25 Urine Urobilinogen 1 mg/dL (Negative) H 08/12/23 15:25 Ur Leukocyte Esterase Trace (Negative) H 08/12/23 15:25 Urine RBC 0-4 /hpf (0-2) H 08/12/23 15:25 Urine WBC 5-10 /hpf (0-5) H 08/12/23 15:25 Ur Squamous Epith Cells 0-4 /hpf (0-5) H 08/12/23 15:25 Amorphous Sediment 3+ /hpf 08/12/23 15:25 Urine Bacteria None /hpf (NONE) 08/12/23 15:25 Urine Mucus 3+ /hpf 08/12/23 15:25 Salicylates < 0.3 mg/dL (3-10) L 08/12/23 12:25 Urine Opiates Screen Negative ng/mL (Negative) 08/12/23 15:25 Acetaminophen < 5.0 ug/mL (10-30) L 08/12/23 12:25 Ur Barbiturates Screen Negative ng/mL (Negative) 08/12/23 15:25 Ur Phencyclidine Scrn Negative ng/mL (Negative) 08/12/23 15:25 Ur Amphetamines Screen Positive ng/mL (Negative) H 08/12/23 15:25 U Benzodiazepines Scrn Negative ng/mL (Negative) 08/12/23 15:25 Urine Cocaine Screen Negative ng/mL (Negative) 08/12/23 15:25 U Marijuana (THC) Screen Positive ng/mL (Negative) H 08/12/23 15:25 Ethyl Alcohol < 10 mg/dL (0-10) 08/12/23 12:25 Discharge Plan Discharge Patient Disposition: Home Clinical Impression: Altered mental state, Marijuana use Condition: Stable Prescriptions: No Action amoxicillin 500 mg tablet 500 mg PO BID Qty: 60 0RF Rx Instructions: (rx filled ozh 06/23/23 30d/s also has rx on hold) waiting on extraction schedule dextroamphetamine-amphetamine [Adderall] 10 mg tablet 20 mg PO BID 30 Days Qty: 120 0RF Rx Instructions: administer doses at least 4-6 hours apart Discharge Orders: Discharge ED (Routine); Ordered 08/12/23 Ordered By: Vinny Catherine Referrals: Eddie Lucio MD [Primary Care Provider] - Discharge Diet: Usual diet Discharge Activity: Resume usual activity Patient Instructions: Opioid Safety, Pain Management Activity Restrictions/Additional Instructions: Continue your usual home medications. Follow-up with your primary care physician in 2 to 3 days for reevaluation. Return if you develop any new or worsening symptoms. Coding Level of Care Code ED Application Project Leader for Dale Dumont
--- NOTE | 2023-08-12 11:59 | CT_ITS ---
WS: [id number] CT HEAD NONCONTRAST HISTORY: unresponsive TECHNIQUE: Contiguous axial imaging performed through the brain in 2.5 mm imaging. Bone and soft tiss ue windows. Sagittal and coronal reformats reviewed. All CT scans at [facility] use at least one of these dose optimization techniques: automated exposure control; mA and/or kV adjustment per pa tient size (includes targeted exams where dose is matched to clinical indication); or iterative recon struction. DLP: 1161.04 mGy.cm COMPARISON: None available. No acute intracranial hemorrhage, midline shift or mass effect. No atrophy or prior infarcts or herniation. Ventricles: Normal size with no hydrocephalus. Paranasal sinuses: As visualized are clear. Mastoid air cells: Well pneumatized. Calvarium and scalp: Skull is intact with no soft tissue edema or swelling. IMPRESSION: Negative head CT.
--- NOTE | 2023-08-12 12:00 | ECG_ITS ---
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 Measurements Intervals [place] Rate: 87 P: -34 DE: 126 QRS: 70 QRSD: 89 T: 57 QT: 349 QTc: 421 Interpretive Statements SINUS RHYTHM EARLY REPOLARIZATION [ST ELEVATION WITH NORMALLY INFLECTED T-WAVE] Compared to ECG 10/01/2022 12:08:22 Early repolarization now present Electronically Signed On 08-12-2023 17:57:50 CDT by Adi Doss M.D. [id number]
[2023-08-12 12:44] LABS: Basophils % 0.3 %; Eosinophils % 0.5 %; Hematocrit 46.6 % (37-53); Lymphocytes # 1.7 10^3/uL (0.8-4.8); Lymphocytes % 18.9 %; Mean Corpuscular HGB Conc 34.3 g/dL (30-55); Mean Corpuscular Hemoglobin 29.7 pg (27-33); Mean Corpuscular Volume 86.6 fl (82-101); Mean Platelet Volume 8.8 fL (7.4-10.4); Monocytes # 0.9 10^3/uL (0.2-0.9); Monocytes % 10.7 %; Neutrophils # 6.11 10^3/uL (1.8-7.7); Neutrophils % 69.3 %; Nucleated Red Blood Cells % 0 %; Platelet Count 423 10^3/cmm (157-399); Red Blood Count 5.38 10^6/uL (3.85-5.65); Red Cell Distribution Width 11.9 % (12.1-15.1); White Blood Count 8.82 10^3/uL (3.29-11.43)
[2023-08-12] MEDS: sodium chloride 0.9% 1,000 ML 999 ML IV (12:48)
[2023-08-12 12:52] LABS: Alanine Aminotransferase 10 U/L (0-41); Alkaline Phosphatase 78 U/L (40-130); Blood Urea Nitrogen 18 mg/dL (6-20); Calcium 9.7 mg/dL (8.5-10.5); Carbon Dioxide 28 mmol/L (22-29); Chloride 99 mmol/L (98-107); Globulin 2.9 g/dL (1.3-4.6); Glucose 104 mg/dL (65-115); Osmolality Calculated 286 mOsm/kg (285-295); Sodium 137 mmol/L (136-145); Total Bilirubin 0.9 mg/dL (0.15-1.2); Total Protein 7.9 g/dL (6.6-8.7)
--- NOTE | 2023-08-12 12:52 | PC.NURSE ---
PT PLACED ON CONTINUOUS NIBP ,SPO2, AND CM
[2023-08-12 12:56] LABS: Salicylate < 0.3 mg/dL (3-10)
[2023-08-12 12:57] LABS: Acetaminophen < 5.0 ug/mL (10-30); Alcohol Level < 10 mg/dL (0-10); Anion Gap 15.2 (5-19); Aspartate Amino Transferase 14 U/L (0-40); Potassium 5.2 mmol/L (3.5-5.1)
--- NOTE | 2023-08-12 14:45 | PC.NURSE ---
PT AWAKE IN BED. PT DROWSY. PT STATES IT IS THE YEAR 2016 AND HE DOES NOT KNOW WHY HE IS IN THE ED. PT STATES HE DOES NOT WANT TO HARM HIMSELF OF ANYONE ELSE
--- NOTE | 2023-08-12 15:03 | PC.NURSE ---
PT REFUSED TO GIVE URINE SAMPLE
--- NOTE | 2023-08-12 15:08 | PC.PHAR ---
unable to verify medications with pt-medications entered are what [facility] states they have filled recently for the pt
--- NOTE | 2023-08-12 15:41 | PC.NURSE ---
PT TEARFUL IN BED. PT REQUESTS PAIN MEDICATION. PHYSICIAN NOTIFIED
[2023-08-12 16:12] LABS: Amphetamines Screen Urine Positive (Negative); Barbiturates Screen Urine Negative (Negative); Benzodiazepines Screen Urine Negative (Negative); Cocaine Screen Urine Negative (Negative); Opiate Screen Urine Negative (Negative); PCP Screen Urine Negative (Negative); THC Screen Urine Positive (Negative)
[2023-08-12 16:16] LABS: Add Urine Microscopic? YES; Bilirubin Urine 1+ (Negative); Blood Urine Neg (Negative); Glucose Urine UA Norm (Normal); Ketones Urine 2+ (Negative); Leukocyte Esterase Urine Trace (Negative); Nitrate Urine Negative (Negative); Protein Urine 1+ (Negative); Urine Appearance Clear (CLEAR); Urine Color Dark yellow (Yellow); Urobilinogen Urine 1 mg/dL (Negative); pH Urine 5 (5-7)
[2023-08-12 16:17] LABS: Add Urine Culture? No; Amorphous Sediment Urine 3+ /hpf; Mucus Urine 3+ /hpf; RBC Urine 0-4 /hpf (0-2); Squamous Epithelial Cell Urine 0-4 /hpf (0-5)
[2023-08-12] MEDS: acetaminophen 500 mg Tablet 1000 MG PO (16:27)
== END 2023-08-12 17:13 | disposition home or self-care (01) ==
PROVIDERS: Emergency Provider Family Medicine; PCP Family Medicine Adult Medicine
DX: R41.82 Altered mental status, unspecified (principal); F12.90 Cannabis use, unspecified, uncomplicated
CPT/HCPCS: 70450; 71045; 80053; 80306; 80307; 81001; 85025; 93005; 96360; 99285; J7030

== ENCOUNTER → 2023-10-10 08:41 | Outpatient (BNVA) | payer MEDICAID, SELFPAY | PROVIDERS: PCP Family Medicine Adult Medicine; Visit Provider Family Medicine Adult Medicine | DX: F90.9 Attention-deficit hyperactivity disorder, unspecified type (principal); F22 Delusional disorders; F41.9 Anxiety disorder, unspecified; B35.1 Tinea unguium; Z91.018 Allergy to other foods | CPT/HCPCS: 80053; 84443; 86003; 86008 ==

== ENCOUNTER 2024-02-17 12:56 | Outpatient (CLI) | payer MEDICAID, SELFPAY ==
[2024-02-17 13:01] VITALS: BP 140/93; PULSE 99; RESP 18; TEMP 36.4; O2SAT 98; BMI 25.8
--- NOTE | 2024-02-17 13:11 | W.ED.SKABFB ---
HPI - Skin/Abscess/Foreign Bdy General: Chief complaint: Skin/Abscess/Foreign Body Stated complaint: worms in stool Time Seen by Provider: 02/17/24 13:06 Source: patient Mode of arrival: ambulatory Limitations: no limitations History of Present Illness: Patient is a 33-year-old male with a history of delusional disorder here stating he believes he has worms in his stool. Patient states he saw two worms in his stool earlier today. He describes the worms as approximately 2 inches each. He names some type of specific worm that he believes they are. 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 He also has a feeling that bugs are crawling on and near his groin. He states he can feel and see them moving. He applied permethrin cream yesterday and felt like this helped. Looking at previous documentation patient has been seen multiple times for very similar symptoms. He also tells me he tested positive for H. pylori 8 years ago and wants treatment for this today. MD complaint: rash and other (worms in stool, things crawling on him) Relieving factors: none Exacerbating factors: none Context: none Associated symptoms: Reports no associated symptoms; Deny chills, fever(s), nausea or vomiting Treatments prior to arrival: other (permethrin cream) Review of Systems Const: Denies: fever(s), chills, body aches, fatigue or malaise Card: Denies: chest pain Resp: Denies: dyspnea GI: Reports: other (reports worms in his stool); Denies: abdominal pain, nausea, vomiting or diarrhea : Denies: flank pain, difficulty urinating, dysuria, urinary frequency or urinary urgency Musc: Denies: neck pain, back pain, extremity pain or joint pain Skin/Breast: Reports: other (rash to penis/inguinal regions/genitalia ) Neuro: Reports: sensory changes (feels like things are crawling on/near his groin); Denies: headache(s), numbness in extremities or weakness in extremities PFSH ED PFSH: Medical History Folliculitis Post-traumatic stress disorder, chronic Autism spectrum disorder Attention deficit disorder (ADD) diagnosed as a child Borderline intellectual disability Testing on 12/04/18 reveals IQ 75 Tinea pedis of both feet Allergy to lztpvwfbo-ybqch-3,3-galactose 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 GERD (gastroesophageal reflux disease) Onychomycosis Dental caries Psychiatric care Family History Mother CAD (coronary artery disease) Cancer lymphatic Denies family history of Diabetes Clotting disorder Dementia Hyperlipidemia Chronic kidney disease (CKD) Anesthesia complication Bleeding disorder Lung disease Hypertension Stroke Social History Smoking and tobacco/nicotine status: never used tobacco/nicotine Alcohol intake: never Substance/Drug Use: never Adopted: No Caregiver/support person: No Lives independently: Yes Marital status: Single Current occupational status: employed Current occupation: [employer] Current gender identity: Male Physical Exam Const: COMMON NORMALS: no acute distress, average body habitus, patient oriented x3, no limitations, healthy appearing, alert and well nourished Resp: COMMON NORMALS: normal respiratory effort and clear to auscultation bilaterally AUSCULTATION: clear to auscultation bilaterally Cardio: COMMON NORMALS: regular rate and regular rhythm RATE: regular rate RHYTHM: regular rhythm GI: COMMON NORMALS: Normal to inspection, nondistended, normoactive bowel sounds present, Soft to palpation, non-tender, No hepatosplenomegaly present and no masses PALPATION: Yes Soft to palpation and Yes No hepatosplenomegaly present : COMMON NORMALS: Yes no CVA tenderness BLADDER/KIDNEY EXAM: Yes no CVA tenderness PENIS: normal penis MEATUS: meatus normal TESTES: Yes testicular lie normal OTHER: normal external appearance without rash Back/Pelvis: COMMON NORMALS: no CVA tenderness Neuro: COMMON NORMALS: patient oriented x3 SENSORIUM/ORIENTATION: Yes alert Skin: COMMON NORMALS: no rashes or lesions noted GENERAL SKIN EXAM: no rashes or lesions noted Course Vital Signs: Vital signs: Vital Signs Temperature 97.6 F 02/17/24 13:01 Pulse Rate 71 02/17/24 13:55 Respiratory Rate 16 02/17/24 13:55 Blood Pressure 122/85 02/17/24 13:55 Pulse Oximetry 99 02/17/24 13:55 MDM - Skin/Abscess/Foreign Bdy Medicial Decision Making Based on patient's history and multiple previous medical visits along with his diagnosed delusional disorder, I have a very low suspicion that he actually has an active parasitic infection. Did offer to test for ova and parasites however patient states he was not able to provide a stool sample. Went ahead and placed order and he can bring a stool sample back at his convenience and we can test and administer treatment if positive. I told him I would not be willing to write him for quadruple or triple therapy for H. pylori based on a test 8 years ago. Patient's physical exam is completely benign today. Recommend follow-up with his primary care provider. Medical Records I reviewed the patient's medical records. No radiology studies performed this visit Discharge Plan Discharge Patient Disposition: Home Clinical Impression: Worms in stool Condition: Stable Prescriptions: No Action loratadine 10 mg tablet 10 mg PO DAILY PRN (Reason: allergic symptoms) Qty: 30 5RF permethrin 5 % cream 1 applic topical Q14D Qty: 60 0RF Rx Instructions: apply to body, wash off after 12-14 hours repeat in 7 days. omeprazole magnesium [Prilosec OTC] 20 mg tablet,delayed release (DR/EC) 20 mg PO DAILY Qty: 90 0RF clotrimazole-betamethasone 1-0.05 % cream 1 applic topical BID 14 Days Qty: 45 1RF terbinafine HCl 250 mg tablet 250 mg PO DAILY Qty: 30 2RF dextroamphetamine-amphetamine [Adderall XR] 20 mg capsule,extended release 24hr 20 mg PO QAM 30 Days Qty: 30 0RF Rx Instructions: Take one capsule every morning Discharge Orders: Discharge ED (Routine); Ordered 02/17/24 Ordered By: Nisa Anaya Referrals: Eddie Lucio MD [Primary Care Provider] - Activity Restrictions/Additional Instructions: As we discussed we were not able to give a stool sample today. I have placed an order in your chart for testing of ova and parasites in your stool. You may bring a stool sample back at any time and drop it off at lab. As we discussed this test will take several days to run. You may follow-up with your primary care provider after this results for treatment options. Coding Level of Care Code ED Ribbon Cleaner for Dale Dumont
[2024-02-17 13:55] VITALS: BP 122/85; PULSE 71; RESP 16; O2SAT 99
== END 2024-02-18 14:37 | disposition home or self-care (01) ==
LOC: ER 13:27 → LAB 02-18 14:38
PROVIDERS: Emergency Provider Physician Assistant; PCP Family Medicine Adult Medicine; Visit Provider Emergency Medicine
DX: B83.9 Helminthiasis, unspecified (principal)
CPT/HCPCS: 82274; 83630; 87045; 87177; 87209; 87427; 87449; 99283

== ENCOUNTER 2024-02-21 20:00 | Emergency (ER) | payer MEDICAID, SELFPAY ==
[2024-02-21 20:14] VITALS: BP 122/79; PULSE 98; RESP 17; TEMP 36.6; O2SAT 97; BMI 25.4
--- NOTE | 2024-02-21 21:43 | USR_ITS ---
PROCEDURE INFORMATION: Exam: US Scrotum and US Duplex Artery and Vein, Scrotum, Complete Exam date and time: 02/21/2024 10:42 PM Age: 33 years old Clinical indication: Scrotum pain; Additional info: testicle wiggling - requested US TECHNIQUE: Imaging protocol: Real-time ultrasound of the scrotum. Real-time duplex ultrasound scan of the arterial and venous flow of the scrotum with B-mode, color Doppler flow and spectral waveform analysis. Complete exam. Duplex exam was performed to evaluate for torsion and other vascular conditions. COMPARISON: US abdomen limited [id number] 10/01/2022 11:44 AM FINDINGS: Right testicle: Microlithiasis. No mass. No torsion. Normal vascular flow. Left testicle: Microlithiasis. No mass. No torsion. Normal vascular flow. Epididymides: Normal. Scrotum/soft tissues: Normal. Other findings: No varicocele. US/US scrotum [id number] IMPRESSION: 1. No acute findings. 2. Testicular microlithiasis is present without intratesticular mass or other worrisome findings. Follow-up guidelines for testicular microlithiasis are somewhat controversial, in the absence of any other risk factors for testicular cancer (e.g., personal history of testicular cancer, a father or brother with testicular cancer, history of cryptorchidism or maldescent, testicular atrophy, or other risk factors), no further imaging or biochemical follow-up is necessary; all that is recommended is routine monthly testicular self-examination. However, if the patient has risk factors for testicular cancer, referral to a urologist for evaluation and determination of an optimal follow-up strategy is recommended.
--- NOTE | 2024-02-21 21:46 | ED_ITS ---
Documented by User: MARKO Calderon 02/21/24 23:57 HPI - Male Genitourinary General: Chief complaint: Urogenital-Male Stated complaint: Abd pain Time Seen by Provider: 02/21/24 21:28 Source: patient Mode of arrival: ambulatory Limitations: no limitations History of Present Illness: Patient is a 33-year-old male presenting to the emergency department complaining of wiggling testicles for which she was seen here previously 2 separate times. He arrives stating he wants an ultrasound because he feels a weird wiggling sensation from his left groin into his left testicle as well as along the side of his penis. He states it gets worse when he gets erections. He also notes some burning with urination but denies any other symptoms at this time. Patient has documented history of delusional disorder. Complaint: other ( Testicular wiggling ) Duration: intermittent Location: penis, right testicle and left testicle Severity: mild Exacerbating factors: other (Erections) Associated symptoms: Reports dysuria; Deny nausea or vomiting Review of Systems General: Reports: 10 or more systems reviewed and unremarkable except in HPI and below Const: Denies: fever(s), chills or fatigue Eyes: Denies: change in vision ENMT: Denies: throat pain, ear or mastoid pain or nasal discharge Card: Denies: chest pain, palpitations, swelling of feet/ankles or lightheadedness Resp: Denies: dyspnea, productive cough or wheezing GI: Denies: abdominal pain, nausea, vomiting, diarrhea or constipation : Reports: dysuria and other ( Testicular wiggling ); Denies: flank pain, difficulty urinating or urinary frequency Musc: Denies: neck pain, back pain or joint pain Skin/Breast: Denies: rash Neuro: Denies: headache(s), numbness in extremities or weakness in extremities PFS ED PFSH: Medical History Folliculitis Post-traumatic stress disorder, chronic Autism spectrum disorder Attention deficit disorder (ADD) diagnosed as a child Borderline intellectual disability Testing on 11/03/18 reveals IQ 75 Tinea pedis of both feet Allergy to nnywbitlk-aeudn-5,3-galactose 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 GERD (gastroesophageal reflux disease) Onychomycosis Dental caries Psychiatric care Family History Mother CAD (coronary artery disease) Cancer lymphatic Denies family history of Diabetes Clotting disorder Dementia Hyperlipidemia Chronic kidney disease (CKD) Anesthesia complication Bleeding disorder Lung disease Hypertension Stroke Social History Smoking and tobacco/nicotine status: never used tobacco/nicotine Alcohol intake: never Substance/Drug Use: never Adopted: No Caregiver/support person: No Lives independently: Yes Marital status: Single Current occupational status: employed Current occupation: [employer] Current gender identity: Male Physical Exam Const: COMMON NORMALS: no acute distress, patient oriented x3 and no limitations GENERAL APPEARANCE: cooperative, comfortable and well developed ORIENTATION/CONSCIOUSNESS: Yes awake, Yes oriented to person, Yes oriented to place and Yes oriented to time HENMT: COMMON NORMALS: normocephalic, atraumatic and hearing grossly normal bilaterally HEAD & SCALP: normocephalic and atraumatic Eye: COMMON NORMALS: Equal, round and reactive pupils present, EOMs intact bilaterally and conjunctivae normal CONJUNCTIVA: Yes conjunctivae normal PUPIL: Yes Equal, round and reactive pupils present Neck/C-Spine: COMMON NORMALS: full ROM, supple and no JVD Resp: COMMON NORMALS: normal respiratory effort, No retractions, No use of accessory muscles and clear to auscultation bilaterally AUSCULTATION: clear to auscultation bilaterally Cardio: COMMON NORMALS: no JVD, regular rate, regular rhythm, No clicks present (Cardio), No murmurs present (Cardio) and No rub (Cardio) RATE: regular rate RHYTHM: regular rhythm : COMMON NORMALS: Yes Testes normal, Yes scrotum normal and Yes no scrotal swelling PENIS: normal penis MEATUS: meatus normal SCROTUM: Yes testes descended bilaterally and Yes Cremasteric reflex present TESTES: Yes testicular lie normal Extremity: COMMON NORMALS: normal to inspection, full ROM and capillary refill normal Neuro: COMMON NORMALS: patient oriented x3, moves all extremities, no focal motor deficits and no sensory deficits noted SENSORIUM/ORIENTATION: Yes oriented to person, Yes oriented to place and Yes oriented to time Psych: COMMON NORMALS: mental status grossly normal and Normal thought process present THOUGHT PROCESS: Normal thought process present Skin: COMMON NORMALS: no rashes or lesions noted GENERAL SKIN EXAM: no rashes or lesions noted Course Vital Signs: Vital signs: Vital Signs Temperature 97.9 F 02/21/24 20:14 Pulse Rate 98 02/21/24 20:14 Respiratory Rate 17 02/21/24 20:14 Blood Pressure 122/79 02/21/24 20:14 Pulse Oximetry 97 02/21/24 20:14 Oxygen Delivery Me thod Room Air 02/21/24 20:14 MDM - Male Medical Decision Making This patient was evaluated in the emergency department today due to concerns about something moving around in his penis and testicles. He had previously been seen 2 separate times for similar issues, and most recently gave a stool sample because he was convinced that there were worms inside of him. Patient arrives today wanting an ultrasound to rule out any acute issues with his testicles/penis. Vitals normal. Examination completely unremarkable. Ultrasound also showed no acute findings, but did show some incidental findings of testicular calcifications. Patient does not report any family history of testicular issues, and it is recommended that patient do self testicular exams. The wiggling that he is feeling in his penis is noted to be a vein, and I instructed him to follow-up with his primary care provider to discuss his health anxiety. He has been seen numerous times for symptoms that seem to be obsessive to the patient, and I think he would benefit from outpatient follow-up for this. I informed the patient of his normal findings, to which she is relieved. He agrees to follow-up with his primary care provider, and all other questions and concerns are addressed. Return precautions given. Lab Data Radiology Impressions Scrotum Ultrasound 02/21/24 21:43 IMPRESSION: 1. No acute findings. 2. Testicular microlithiasis is present without intratesticular mass or other worrisome findings. Follow-up guidelines for testicular microlithiasis are somewhat controversial, in the absence of any other risk factors for testicular cancer (e.g., personal history of testicular cancer, a father or brother with testicular cancer, history of cryptorchidism or maldescent, testicular atrophy, or other risk factors), no further imaging or biochemical follow-up is necessary; all that is recommended is routine monthly testicular self-examination. However, if the patient has risk factors for testicular cancer, referral to a urologist for evaluation and determination of an optimal follow-up strategy is recommended. Laboratory Results Urine Color Yellow (Yellow) 02/21/24 21:19 Urine Appearance Clear (CLEAR) 02/21/24 21:19 Urine pH 8 (5-7) H 02/21/24 21:19 Ur Specific Delight 1.010 (1.005-1.030) 02/21/24 21:19 Urine Protein Neg (Negative) 02/21/24 21:19 Urine Glucose (UA) Norm (Normal) 02/21/24 21:19 Urine Ketones Negative (Negative) 02/21/24 21:19 Urine Blood Neg (Negative) 02/21/24 21:19 Urine Nitrate Negative (Negative) 02/21/24 21:19 Urine Bilirubin Neg (Negative) 02/21/24 21:19 Prot Sulfosalicylic Acd Negative (Negative) 02/21/24 21:19 Urine Urobilinogen Neg mg/dL (Negative) 02/21/24 21:19 Ur Leukocyte Esterase Negative (Negative) 02/21/24 21:19 All radiology interpretation(s) finalized by discharge Discharge Plan Discharge Patient Disposition: Home Clinical Impression: Normal testicular exam, Anxiety about health Condition: Stable Prescriptions: No Action loratadine 10 mg tablet 10 mg PO DAILY PRN (Reason: allergic symptoms) Qty: 30 5RF permethrin 5 % cream 1 applic topical Q14D Qty: 60 0RF Rx Instructions: apply to body, wash off after 12-14 hours repeat in 7 days. omeprazole magnesium [Prilosec OTC] 20 mg tablet,delayed release (DR/EC) 20 mg PO DAILY Qty: 90 0RF clotrimazole-betamethasone 1-0.05 % cream 1 applic topical BID 14 Days Qty: 45 1RF terbinafine HCl 250 mg tablet 250 mg PO DAILY Qty: 30 2RF dextroamphetamine-amphetamine [Adderall XR] 20 mg capsule,extended release 24hr 40 mg PO QAM 30 Days Qty: 60 0RF Rx Instructions: Take two capsules every morning Discharge Orders: Discharge ED (Routine); Ordered 02/21/24 Ordered By: Mike Silva Referrals: Eddie Lucio MD [Primary Care Provider] - Discharge Diet: Usual diet Discharge Activity: Resume usual activity Patient Instructions: Anxiety (ED) Activity Restrictions/Additional Instructions: Your testicular ultrasound today showed no emergent findings. Follow-up with your primary care provider. Return if you have any new concerning symptoms. Coding Level of Care Code ED Bar Host/Hostess for Chg Fwd Documented by User: Carrington Rivas DO 02/23/24 06:45 HPI - Male Genitourinary General: Chief complaint: Urogenital-Male Stated complaint: Abd pain Time Seen by Provider: 02/21/24 21:28 PFSH ED PFSH: Medical History Folliculitis Post-traumatic stress disorder, chronic Autism spectrum disorder Attention deficit disorder (ADD) diagnosed as a child Borderline intellectual disability Testing on 11/03/18 reveals IQ 75 Tinea pedis of both feet Allergy to ekwrphwbq-xodgx-0,3-galactose 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 GERD (gastroesophageal reflux disease) Onychomycosis Dental caries Psychiatric care Family History Mother CAD (coronary artery disease) Cancer lymphatic Denies family history of Diabetes Clotting disorder Dementia Hyperlipidemia Chronic kidney disease (CKD) Anesthesia complication Bleeding disorder Lung disease Hypertension Stroke Social History Smoking and tobacco/nicotine status: never used tobacco/nicotine Alcohol intake: never Substance/Drug Use: never Adopted: No Caregiver/support person: No Lives independently: Yes Marital status: Single Current occupational status: employed Current occupation: [employer] Current gender identity: Male Course Vital Signs: Vital signs: Vital Signs Temperature 97.9 F 02/21/24 20:14 Pulse Rate 98 02/21/24 20:14 Respiratory Rate 17 02/21/24 20:14 Blood Pressure 122/79 02/21/24 20:14 Pulse Oximetry 97 02/21/24 20:14 Oxygen Delivery Me thod Room Air 02/21/24 20:14 MDM - Male Medical Decision Making This patient was evaluated in the emergency department today due to concerns about something moving around in his penis and testicles. He had previously been seen 2 separate times for similar issues, and most recently gave a stool sample because he was convinced that there were worms inside of him. Patient arrives today wanting an ultrasound to rule out any acute issues with his testicles/penis. Vitals normal. Examination completely unremarkable. Ultrasound also showed no acute findings, but did show some incidental findings of testicular calcifications. Patient does not report any family history of testicular issues, and it is recommended that patient do self testicular exams. The wiggling that he is feeling in his penis is noted to be a vein, and I instructed him to follow-up with his primary care provider to discuss his health anxiety. He has been seen numerous times for symptoms that seem to be obsessive to the patient, and I think he would benefit from outpatient follow-up for this. I informed the patient of his normal findings, to which she is relieved. He agrees to follow-up with his primary care provider, and all other questions and concerns are addressed. Return precautions given. Chart reviewed Lab Data Radiology Impressions Scrotum Ultrasound 02/21/24 21:43 IMPRESSION: 1. No acute findings. 2. Testicular microlithiasis is present without intratesticular mass or other worrisome findings. Follow-up guidelines for testicular microlithiasis are somewhat controversial, in the absence of any other risk factors for testicular cancer (e.g., personal history of testicular cancer, a father or brother with testicular cancer, history of cryptorchidism or maldescent, testicular atrophy, or other risk factors), no further imaging or biochemical follow-up is necessary; all that is recommended is routine monthly testicular self-examination. However, if the patient has risk factors for testicular cancer, referral to a urologist for evaluation and determination of an optimal follow-up strategy is recommended. Laboratory Results Urine Color Yellow (Yellow) 02/21/24 21:19 Urine Appearance Clear (CLEAR) 02/21/24 21:19 Urine pH 8 (5-7) H 02/21/24 21:19 Ur Specific Delight 1.010 (1.005-1.030) 02/21/24 21:19 Urine Protein Neg (Negative) 02/21/24 21:19 Urine Glucose (UA) Norm (Normal) 02/21/24 21:19 Urine Ketones Negative (Negative) 02/21/24 21:19 Urine Blood Neg (Negative) 02/21/24 21:19 Urine Nitrate Negative (Negative) 02/21/24 21:19 Urine Bilirubin Neg (Negative) 02/21/24 21:19 Prot Sulfosalicylic Acd Negative (Negative) 02/21/24 21:19 Urine Urobilinogen Neg mg/dL (Negative) 02/21/24 21:19 Ur Leukocyte Esterase Negative (Negative) 02/21/24 21:19 Discharge Plan Discharge Patient Disposition: Home Clinical Impression: Normal testicular exam, Anxiety about health Condition: Stable Prescriptions: No Action loratadine 10 mg tablet 10 mg PO DAILY PRN (Reason: allergic symptoms) Qty: 30 5RF permethrin 5 % cream 1 applic topical Q14D Qty: 60 0RF Rx Instructions: apply to body, wash off after 12-14 hours repeat in 7 days. omeprazole magnesium [Prilosec OTC] 20 mg tablet,delayed release (DR/EC) 20 mg PO DAILY Qty: 90 0RF clotrimazole-betamethasone 1-0.05 % cream 1 applic topical BID 14 Days Qty: 45 1RF terbinafine HCl 250 mg tablet 250 mg PO DAILY Qty: 30 2RF dextroamphetamine-amphetamine [Adderall XR] 20 mg capsule,extended release 24hr 40 mg PO QAM 30 Days Qty: 60 0RF Rx Instructions: Take two capsules every morning Discharge Orders: Discharge ED (Routine); Ordered 02/21/24 Ordered By: Mike Silva Referrals: Eddie Lucio MD [Primary Care Provider] - Discharge Diet: Usual diet Discharge Activity: Resume usual activity Patient Instructions: Anxiety (ED) Activity Restrictions/Additional Instructions: Your testicular ultrasound today showed no emergent findings. Follow-up with your primary care provider. Return if you have any new concerning symptoms. Coding Level of Care Code ED Bar Host/Hostess for Dale Dumont
[2024-02-21 23:20] LABS: Add Urine Microscopic? NO; Charge for UA Resulting for Rev
[2024-02-21 23:36] LABS: Bilirubin Urine Neg (Negative); Blood Urine Neg (Negative); Glucose Urine UA Norm (Normal); Ketones Urine Negative (Negative); Leukocyte Esterase Urine Negative (Negative); Nitrate Urine Negative (Negative); Protein Urine Neg (Negative); Sulfosalicylic Acid Urine Negative (Negative); Urine Appearance Clear (CLEAR); Urine Color Yellow (Yellow); Urobilinogen Urine Neg (Negative); pH Urine 8 (5-7)
== END 2024-02-22 00:15 | disposition home or self-care (01) ==
PROVIDERS: Emergency Provider Physician Assistant; PCP Family Medicine Adult Medicine
DX: Z03.89 Encounter for observation for other suspected diseases and conditions ruled out (principal); F41.9 Anxiety disorder, unspecified; F84.0 Autistic disorder
CPT/HCPCS: 76870; 81003; 99284

== ENCOUNTER → 2024-03-11 14:49 | Outpatient (BNVA) | payer MEDICAID, SELFPAY | PROVIDERS: PCP Family Medicine Adult Medicine; Visit Provider Nurse Practitioner Psychiatric/Mental Health | DX: Z79.899 Other long term (current) drug therapy (principal) | CPT/HCPCS: 80053; 80061; 80307; 81001; 83036; 84443 ==

== ENCOUNTER 2024-04-30 11:19 | Emergency (ER) | payer MEDICAID, SELFPAY ==
[2024-04-16 13:54] VITALS: BP 144/103; BMI 25.5
[2024-04-30 11:23] VITALS: BP 142/96; PULSE 87; RESP 17; TEMP 36.7; O2SAT 96
--- NOTE | 2024-04-30 12:21 | XR_ITS ---
WS: [id number] Exam: XR chest 1V portable [id number] Date/Time of Exam: 04/30/2024 12:32 PM Reason For Exam: chest pain Comparison 08/12/2023. Lungs are clear and fully expanded. Normal cardiomediastinal silhouette. Regional bony elements appea r normal. XR/XR chest 1V portable [id number] IMPRESSION: 1. Negative chest.
[2024-04-30] MEDS: ketorolac 30 mg/mL INJ IM (12:29)
--- NOTE | 2024-04-30 12:32 | ECG_ITS ---
[facility] Test Date: 2024-04-30 Pat Name: Chuck Jamison Department: Room: Gender: Male Chief Legal Officer: : 1990 Requested By: Chris Rodrigez Order Number: [id number] Robertson MD: Adi Doss M.D. Measurements Intervals [place] Rate: 70 P: 35 OR: 203 QRS: 33 QRSD: 105 T: 16 QT: 402 QTc: 437 Interpretive Statements SINUS RHYTHM Compared to ECG 08/12/2023 12:00:03 Early repolarization no longer present Electronically Signed On 04-30-2024 12:34:42 CDT by Adi Doss M.D. [id number]
--- NOTE | 2024-04-30 12:47 | ED_ITS ---
HPI - Extremity Problem 2 General: Chief complaint: Extremity Problem,Nontraumatic Stated complaint: left side, chest pains Time Seen by Provider: 04/30/24 12:15 History of Present Illness: 34 y/o M presents to the emergency depar tment reporting pain and tingling in the chest and left shoulder, which began approximately two to three weeks ago. The symptoms started after receiving an antibiotic, levofloxacin, prescribed for a urinary tract infection (UTI) characterized by an unusual smell. The patient also mentions a subsequent tick bite treated with minocycline, an antibiotic they are currently still taking. Additionally, the patient experiences intermittent shortness of breath and abdominal pain. They report a normal bowel movement an hour prior to the visit and occasional constipation. The patient has a history of autism, ADHD, anxiety, and previously treated H. pylori infection, with a possibility of recurrence. They also experience pain in the thumb, which is a new symptom. The patient is unsure about the exact timeline of symptom onset and struggles with recalling specific details. 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 GERD (gastroesophageal reflux disease) Psychiatric care Family History Mother CAD (coronary artery disease) Cancer lymphatic Denies family history of Diabetes Clotting disorder Dementia Hyperlipidemia Chronic kidney disease (CKD) Anesthesia complication Bleeding disorder Lung disease Hypertension Stroke Social History Smoking and tobacco/nicotine status: never used tobacco/nicotine Alcohol intake: never Substance/Drug Use: never Adopted: No Caregiver/support person: No Lives independently: Yes Housing: Apartment Marital status: Single Highest education level completed: High School Graduate service: No Current occupational status: employed Current occupation: Self employeed Current occupational exposures/hazards: No Pets and animals: Yes Pets & animals: dog(s) Leisure activites: sports, music, games, fishing and other Leisure activities details: snow boarding Sexually active: No Do you think of yourself as: Straight/Heterosexual Current gender identity: Male Special guille needs: No Agree to transfusion: Yes Physical Exam 2 Const: COMMON NORMALS: no acute distress, patient oriented x3, healthy appearing, alert and well nourished HENMT: COMMON NORMALS: normocephalic HEAD & SCALP: normocephalic Eye: COMMON NORMALS: EOMs intact bilaterally Neck/C-Spine: COMMON NORMALS: full ROM and supple Chest: CHEST: Yes localized rib tenderness with anteroposterior compression (left) Location: 6th rib and Yes tenderness Resp: COMMON NORMALS: normal respiratory effort, No retractions and clear to auscultation bilaterally AUSCULTATION: clear to auscultation bilaterally Cardio: COMMON NORMALS: regular rate, regular rhythm, No gallops present (Cardio) and No murmurs present (Cardio) RATE: regular rate RHYTHM: r egular rhythm GI: COMMON NORMALS: Soft to palpation and non-tender PALPATION: Yes Soft to palpation Extremity: GENERAL: Yes normal exam except as noted Neuro: COMMON NORMALS: patient oriented x3 SENSORIUM/ORIENTATION: Yes alert Skin: COMMON NORMALS: no rashes or lesions noted GENERAL SKIN EXAM: no rashes or lesions noted Course 2 Vital Signs: Vital signs: Vital Signs Temperature 98.1 F 04/30/24 11:23 Pulse Rate 87 04/30/24 11:23 Respiratory Rate 17 04/30/24 11:23 Blood Pressure 142/96 04/30/24 11:23 Pulse Oximetry 96 04/30/24 11:23 Oxygen Delivery Me thod Room Air 04/30/24 11:23 MDM - Extremity (Nontraumatic) Medical Decision Making 34-year-old male presents to the emergency department for evaluation of chest pain. Patient's vital signs remained stable throughout the entire stay in the emergency department. On physical exam was significant for tenderness to palpation of the anterior chest wall. Laboratory evaluation globally unremarkable. EKG was normal sinus rhythm without any abnormalities. Discussed return precautions. Patient discharged home in good condition. Lab Data 04/30/24 12:39 04/30/24 12:39 Radiology Impressions Chest X-Ray 04/30/24 12:21 IMPRESSION: 1. Negative chest. Laboratory Results WBC 6.75 10^3/uL (3.29-11.43) 04/30/24 12:39 RBC 4.70 10^6/uL (3.85-5.65) 04/30/24 12:39 Hgb 14.00 g/dL (11.27-16.99) 04/30/24 12:39 Hct 40.5 % (37-53) 04/30/24 12:39 MCV 86.2 fl (82-101) 04/30/24 12:39 MCH 29.8 pg (27-33) 04/30/24 12:39 MCHC 34.6 g/dL (30-55) 04/30/24 12:39 RDW 11.4 % (12.1-15.1) L 04/30/24 12:39 Plt Count 342 10^3/cmm (157-399) 04/30/24 12:39 MPV 8.9 fL (7.4-10.4) 04/30/24 12:39 Neut % (Auto) 46.6 % 04/30/24 12:39 Lymph % (Auto) 39.4 % 04/30/24 12:39 [place] % (Auto) 10.5 % 04/30/24 12:39 Eos % (Auto) 3.0 % 04/30/24 12:39 Baso % (Auto) 0.4 % 04/30/24 12:39 Neut # (Auto) 3.14 10^3/uL (1.8-7.7) 04/30/24 12:39 Lymph # (Auto) 2.7 10^3/uL (0.8-4.8) 04/30/24 12:39 [place] # (Auto) 0.7 10^3/uL (0.2-0.9) 04/30/24 12:39 Eos # (Auto) 0.2 10^3/uL (0.0-0.8) 04/30/24 12:39 Baso # (Auto) 0.0 10^3/uL (0.0-0.1) 04/30/24 12:39 Nucleated RBC % (auto) 0 % 04/30/24 12:39 Nucleated RBCs # 0.0 /100WBC 04/30/24 12:39 Sodium 138 mmol/L (136-145) 04/30/24 12:39 Potassium 3.4 mmol/L (3.5-5.1) L 04/30/24 12:39 Chloride 100 mmol/L (98-107) 04/30/24 12:39 Carbon Dioxide 26 mmol/L (22-29) 04/30/24 12:39 Anion Gap 15.4 (5-19) 04/30/24 12:39 BUN 10 mg/dL (6-20) 04/30/24 12:39 Creatinine 0.6 mg/dL (0.7-1.2) L 04/30/24 12:39 GFR Calculation 152.4 mL/min (90-130) H 04/30/24 12:39 Glucose 92 mg/dL (65-115) 04/30/24 12:39 Calculated Osmolality 285 mOsm/kg (285-295) 04/30/24 12:39 Calcium 9.1 mg/dL (8.5-10.5) 04/30/24 12:39 Total Bilirubin 0.7 mg/dL (0.15-1.2) 04/30/24 12:39 AST 7 U/L (0-40) 04/30/24 12:39 ALT 8 U/L (0-41) 04/30/24 12:39 Alkaline Phosphatase 81 U/L (40-130) 04/30/24 12:39 Troponin T Baseline < 6 ng/L (0-15) 04/30/24 12:39 Total Protein 6.9 g/dL (6.6-8.7) 04/30/24 12:39 Albumin 4.4 g/dL (3.5-5.2) 04/30/24 12:39 Globulin 2.5 g/dL (1.3-4.6) 04/30/24 12:39 No radiology studies performed this visit Discharge Plan Discharge Patient Disposition: Home Clinical Impression: Rib pain on left side Condition: Stable Prescriptions: No Action loratadine 10 mg tablet 10 mg PO DAILY PRN (Reason: allergic symptoms) Qty: 30 5RF risperidone [Risperdal] 1 mg tablet 1 mg PO BEDTIME Qty: 30 3RF Rx Instructions: Take one tablet at bedtime pantoprazole 20 mg tablet,delayed release (DR/EC) 20 mg PO DAILY PRN (Reason: stomack/throat pain) Qty: 30 3RF minocycline 100 mg tablet 100 mg PO BID Qty: 20 0RF clotrimazole-betamethasone 1-0.05 % cream 1 applic topical BID 14 Days Qty: 45 1RF Discharge Orders: Discharge ED (Routine); Ordered 04/30/24 Ordered By: Chris Rodrigez Referrals: Eddie Lucio MD [Primary Care Provider] - Discharge Diet: Usual diet Discharge Activity: Increase activity as tolerated Patient Instructions: Chest Pain - Chest Wall, Opioid Safety, Pain Management Activity Restrictions/Additional Instructions: Please return the emergency department with any new or worsening symptoms. Coding Level of Care Code ED Diesel Engineer for Dale Dumont
[2024-04-30 12:48] LABS: Basophils % 0.4 %; Eosinophils # 0.2 10^3/uL (0.0-0.8); Hematocrit 40.5 % (37-53); Lymphocytes # 2.7 10^3/uL (0.8-4.8); Lymphocytes % 39.4 %; Mean Corpuscular HGB Conc 34.6 g/dL (30-55); Mean Corpuscular Hemoglobin 29.8 pg (27-33); Mean Corpuscular Volume 86.2 fl (82-101); Mean Platelet Volume 8.9 fL (7.4-10.4); Monocytes # 0.7 10^3/uL (0.2-0.9); Monocytes % 10.5 %; Neutrophils # 3.14 10^3/uL (1.8-7.7); Neutrophils % 46.6 %; Nucleated Red Blood Cells % 0 %; Platelet Count 342 10^3/cmm (157-399); Red Cell Distribution Width 11.4 % (12.1-15.1); White Blood Count 6.75 10^3/uL (3.29-11.43)
[2024-04-30 13:08] LABS: Alanine Aminotransferase 8 U/L (0-41); Albumin Level 4.4 g/dL (3.5-5.2); Alkaline Phosphatase 81 U/L (40-130); Anion Gap 15.4 (5-19); Aspartate Amino Transferase 7 U/L (0-40); Blood Urea Nitrogen 10 mg/dL (6-20); Calcium 9.1 mg/dL (8.5-10.5); Carbon Dioxide 26 mmol/L (22-29); Chloride 100 mmol/L (98-107); Creatinine Clr Calc Pharmacy 179.6995; Globulin 2.5 g/dL (1.3-4.6); Glomerular Filtration Rate 152.4 mL/min (90-130); Glucose 92 mg/dL (65-115); Osmolality Calculated 285 mOsm/kg (285-295); Potassium 3.4 mmol/L (3.5-5.1); Sodium 138 mmol/L (136-145); Total Bilirubin 0.7 mg/dL (0.15-1.2); Total Protein 6.9 g/dL (6.6-8.7)
[2024-04-30 13:09] LABS: Troponin(5th) Baseline < 6 ng/L (0-15)
[2024-04-30 13:27] VITALS: BP 121/92; PULSE 79; RESP 16; TEMP 36.7; O2SAT 95
== END 2024-04-30 13:29 | disposition home or self-care (01) ==
PROVIDERS: Emergency Provider General Practice; PCP Family Medicine Adult Medicine
DX: R07.81 Pleurodynia (principal); F84.0 Autistic disorder
CPT/HCPCS: 36415; 71045; 80053; 84484; 85025; 93005; 96372; 99285; J1885

== ENCOUNTER 2024-09-04 23:25 | Emergency (ER) | payer SELFPAY ==
[2024-08-11 08:23] VITALS: BP 144/103; BMI 25.5
[2024-09-04 23:26] VITALS: BP 126/82; PULSE 119; RESP 18; TEMP 36.7; O2SAT 96
[2024-09-04 23:47] VITALS: PULSE 112; O2SAT 100
[2024-09-05] VITALS (10 sets, daily range): BP systolic 105–151; BP diastolic 65–106; PULSE 72–116; RESP 12–15; O2SAT 93–98
--- NOTE | 2024-09-05 00:22 | CTR_ITS ---
PROCEDURE INFORMATION: Exam: CT Head Without Contrast Exam date and time: 09/05/2024 12:42 AM Age: 34 years old Clinical indication: Altered mental status/memory loss; Patient HX: Patient brought in by bystander for AMS. Patient appears confused but is able to follow directions and answer to name and date of . TECHNIQUE: Imaging protocol: Computed tomography of the head without contrast. Radiation optimization: All CT scans at this facility use at least one of these dose optimization techniques: automated exposure control; mA and/or kV adjustment per patient size (includes targeted exams where dose is matched to clinical indication); or iterative reconstruction. COMPARISON: CT head wo con* [id number] 08/12/2023 12:34 PM RADIATION DOSE METRICS: Total DLP (mGy-cm): 1084.2 FINDINGS: Brain: No hemorrhage. No mass effect or midline shift. No significant white matter disease. Cerebral ventricles: No ventriculomegaly. Paranasal sinuses: Visualized sinuses are unremarkable. No fluid levels. Mastoid air cells: Visualized mastoid air cells are well aerated. Bones: Unremarkable. No acute fracture. Soft tissues: Unremarkable. CT/CT head wo con* [id number] IMPRESSION: No acute intracranial findings.
--- NOTE | 2024-09-05 00:22 | XRR_ITS ---
PROCEDURE INFORMATION: Exam: XR Chest Exam date and time: 09/05/2024 12:34 AM Age: 34 years old Clinical indication: Patient HX: Patient brought in by bystander for AMS. Patient appears confused but is able to follow directions and answer to name and date of . TECHNIQUE: Imaging protocol: Radiologic exam of the chest. Views: 1 view. COMPARISON: CR XR chest 1V portable [id number] 04/30/2024 12:53 PM FINDINGS: Lungs: No consolidation. Pleural spaces: No pleural effusion. No pneumothorax. Heart/Mediastinum: No cardiomegaly. Bones/joints: No acute findings. XR/XR chest 1V portable [id number] IMPRESSION: No acute chest findings.
--- NOTE | 2024-09-05 00:25 | ECG_ITS ---
[facility] Test Date: 2024-09-05 Pat Name: Chuck Jamison Department: Room: Gender: Male [employer] Operator: : 1990 Requested By: Flash Bashir Order Number: [id number] Robertson MD: Jose Hirsch M.D. Measurements Intervals [place] Rate: 112 P: 42 AL: 169 QRS: 33 QRSD: 98 T: 37 QT: 331 QTc: 454 Interpretive Statements SINUS TACHYCARDIA LEFT ATRIAL ENLARGEMENT [-0.15mV P-WAVE IN V1/V2] NONSPECIFIC T-WAVE ABNORMALITY Compared to ECG 04/30/2024 12:32:42 Atrial abnormality now present T-wave abnormality now present Sinus rhythm no longer present Electronically Signed On 09-05-2024 22:27:59 CDT by Jose Hirsch M.D. [email or web address]
[2024-09-05 00:37] LABS: Glucose Point of Care 164 mg/dL (70-110)
[2024-09-05 00:39] LABS: Basophils % 0.7 %; Eosinophils % 0.7 %; Hematocrit 43.9 % (37-53); Lymphocytes # 2.1 10^3/uL (0.8-4.8); Lymphocytes % 38.8 %; Mean Corpuscular HGB Conc 34.9 g/dL (30-55); Mean Corpuscular Hemoglobin 30.2 pg (27-33); Mean Corpuscular Volume 86.8 fl (82-101); Mean Platelet Volume 8.8 fL (7.4-10.4); Monocytes # 0.4 10^3/uL (0.2-0.9); Monocytes % 6.4 %; Neutrophils # 2.91 10^3/uL (1.8-7.7); Nucleated Red Blood Cells % 0 %; Platelet Count 450 10^3/cmm (157-399); Red Blood Count 5.06 10^6/uL (3.85-5.65); Red Cell Distribution Width 12.3 % (12.1-15.1); White Blood Count 5.49 10^3/uL (3.29-11.43)
[2024-09-05 00:52] LABS: Alanine Aminotransferase 9 U/L (0-41); Albumin Level 4.7 g/dL (3.5-5.2); Alcohol Level 245 mg/dL (0-10); Alkaline Phosphatase 110 U/L (40-130); Anion Gap 16.8 (5-19); Aspartate Amino Transferase 9 U/L (0-40); Blood Urea Nitrogen 4 mg/dL (6-20); Calcium 8.5 mg/dL (8.5-10.5); Carbon Dioxide 26 mmol/L (22-29); Chloride 105 mmol/L (98-107); Globulin 2.8 g/dL (1.3-4.6); Glomerular Filtration Rate 127.6 mL/min (90-130); Glucose 130 mg/dL (65-115); Osmolality Calculated 297 mOsm/kg (285-295); Potassium 3.8 mmol/L (3.5-5.1); Sodium 144 mmol/L (136-145); Total Bilirubin 0.6 mg/dL (0.15-1.2); Total Protein 7.5 g/dL (6.6-8.7)
[2024-09-05 00:58] LABS: Ammonia 108 umol/L (16-60)
[2024-09-05] MEDS: haloperidol inj 5 mg/mL INJ 1 mL IVP (00:58)
[2024-09-05 01:19] LABS: Acetaminophen < 5.0 ug/mL (10-30); Salicylate < 0.3 mg/dL (3-10); Thyroid Stimulating Hormone 0.58 uIU/mL (0.27-4.20)
[2024-09-05 01:32] LABS: Bilirubin Urine Negative (Negative); Blood Urine Negative (Negative); Glucose Urine UA Negative (Normal); Ketones Urine Negative (Negative); Leukocyte Esterase Urine Negative (Negative); Nitrate Urine Negative (Negative); Protein Urine Negative (Negative); Specific Gravity, Urine 1.004 (1.005-1.030); Urine Appearance Clear (CLEAR); Urine Color Yellow (Yellow); Urobilinogen Urine 0.2 mg/dL (Negative); pH Urine 6.5 (5-7)
[2024-09-05 01:35] LABS: Add Urine Microscopic? YES; Bacteria Urine None Seen /hpf; Hyaline Casts Urine 0-4 /lpf; RBC Urine 0-2 /hpf (0-2); Squamous Epithelial Cell Urine 0-5 /hpf (0-5); WBC Urine 0-5 /hpf (0-5)
[2024-09-05 01:39] LABS: Amphetamines Screen Urine Negative (Negative); Barbiturates Screen Urine Negative (Negative); Benzodiazepines Screen Urine Negative (Negative); Cocaine Screen Urine Negative (Negative); Opiate Screen Urine Negative (Negative); PCP Screen Urine Negative (Negative); THC Screen Urine Negative (Negative)
--- NOTE | 2024-09-05 02:18 | W.ED.NEUROSD ---
HPI - Neuro Symptoms/Deficit General: Chief Complaint: Neuro Symptoms/Deficit Stated Complaint: Neuro Symptoms Time Seen by Provider: 09/05/24 00:12 History of Present Illness: 34-year-old male dropped off by another person to the lobby of the emergency department, and then that person left. The patient himself is unable to give me a clear history. When asked where he is from, he states circumstances are I am here . He does not complain of pain. He is quite lethargic. Related Data Previous Rx's Medication Instructions Recorded loratadine 10 mg tablet 10 mg PO DAILY PRN allergic 10/29/23 symptoms #30 tabs pantoprazole 20 mg tablet,delayed 20 mg PO DAILY PRN stomack/throat 03/17/24 release pain #30 tabs clotrimazole-betamethasone 1 1 applic topical BID 2 weeks #45 04/13/24 %-0.05 % topical cream grams minocycline 100 mg tablet 100 mg PO BID skin infection #20 04/27/24 tabs Allergies Allergy/AdvReac Type Severity Reaction Status Date / Time Alpha-Gal Allergy Intermediate ADR-Gastrointestinal Verified 06/16/24 09:22 (Rriltnhfx-Qnhas-7,3-Gala Upset Pork/Porcine Containing Allergy ALGY-Rash Verified 06/16/24 09:22 Products sheep derived (ovine) Allergy ALGY-Hives Verified 06/16/24 09:22 hamburger Allergy Unknown ALGY-Difficulty Uncoded 06/16/24 09:22 Breathing PFSH ED PFSH: Medical History Insect bite, infected Delusional disorder Post-traumatic stress disorder, chronic Autism spectrum disorder Attention deficit disorder (ADD) diagnosed as a child Borderline intellectual disability Testing on 11/03/18 reveals IQ 75 Allergy to ucolvddhe-zaskl-6,3-galactose 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 GERD (gastroesophageal reflux disease) Psychiatric care Family History Mother CAD (coronary artery disease) Cancer lymphatic Denies family history of Diabetes Clotting disorder Dementia Hyperlipidemia Chronic kidney disease (CKD) Anesthesia complication Bleeding disorder Lung disease Hypertension Stroke Social History Smoking and tobacco/nicotine status: never used tobacco/nicotine Alcohol intake: never Substance/Drug Use: never Adopted: No Caregiver/support person: No Lives independently: Yes Housing: Apartment Marital status: Single Highest education level completed: High School Graduate service: No Current occupational status: employed Current occupation: Self employeed Current occupational exposures/hazards: No Pets and animals: Yes Pets & animals: dog(s) Leisure activites: sports, music, games, fishing and other Leisure activities details: snow boarding Sexually active: No Do you think of yourself as: Straight/Heterosexual Current gender identity: Male Special guille needs: No Agree to transfusion: Yes Physical Exam Const: EXAM LIMITATIONS: altered mental status GENERAL APPEARANCE: cooperative and lethargic; not frail appearing NUTRITIONAL APPEARANCE: thin ORIENTATION/CONSCIOUSNESS: Yes lethargic HENMT: COMMON NORMALS: normocephalic, atraumatic and Normal external nose present HEAD & SCALP: normocephalic and atraumatic FACE & SINUS: normal facial exam and face symmetric NOSE: Normal external nose present and Normal nares present Eye: COMMON NORMALS: Equal, round and reactive pupils present and EOMs intact bilaterally SCLERA: sclerae normal PUPIL: Yes Equal, round and reactive pupils present Neck/C-Spine: GENERAL: Yes trachea midline Chest: CHEST: Yes Symmetrical chest wall rise Resp: COMMON NORMALS: clear to auscultation bilaterally EFFORT & INSPECTION: Yes decreased respiratory effort AUSCULTATION: clear to auscultation bilaterally Cardio: COMMON NORMALS: regular rhythm RATE: tachycardic RHYTHM: regular rhythm GI: COMMON NORMALS: Soft to palpation INSPECTION: No abdominal distension PALPATION: Yes Soft to palpation Extremity: NARRATIVE EXTREMITY EXAM: Atraumatic Neuro: JACEY COMA SCALE: document GCS findings [place] coma scale eye opening: To sound Jacey coma scale verbal response: Confused Jacey coma scale motor response: Localising [place] coma scale total score: 12 SENSORIUM/ORIENTATION: Yes lethargic Course Vital Signs: Vital signs: Vital Signs Temperature 98.0 F 09/04/24 23:26 Pulse Rate 103 H 09/05/24 03:29 Respiratory Rate 12 09/05/24 02:15 Blood Pressure 128/95 09/05/24 03:29 Pulse Oximetry 96 09/05/24 03:29 Oxygen Delivery Me thod Room Air 09/05/24 03:29 MDM - Neuro Symptoms/Deficit Medical Decision Making This patient is quite lethargic on exam. He does not answer questions appropriately. He is tachycardic. Other vitals are stable. CBC shows increased platelet count which she has had in the past. BMP is not remarkable. His alcohol level was 245. Head CT and chest x-ray are nonacute. His ammonia level is 100. Urine drug screen is negative. Urinalysis is negative. He is agitated, and was given Haldol 5 mg IV. This seems to have helped. Patient is up now. He is able to ambulate. He is asking to go home. We have called friends and family, no answers as of yet. We will keep trying. Lab Data 09/05/24 00:26 09/05/24 00:26 Radiology Impressions Chest X-Ray 09/05/24: IMPRESSION: No acute chest findings. Head CT 09/05/24: IMPRESSION: No acute intracranial findings. Laboratory Results WBC 5.49 10^3/uL (3.29-11.43) 09/05/24 00:26 RBC 5.06 10^6/uL (3.85-5.65) 09/05/24 00:26 Hgb 15.30 g/dL (11.27-16.99) 09/05/24 00:26 Hct 43.9 % (37-53) 09/05/24 00: MCV 86.8 fl (82-101) 09/05/24 00: MCH 30.2 pg (27-33) 09/05/24 00: MCHC 34.9 g/dL (30-55) 09/05/24 00: RDW 12.3 % (12.1-15.1) 09/05/24 00:26 Plt Count 450 10^3/cmm (157-399) H 09/05/24 00:26 MPV 8.8 fL (7.4-10.4) 09/05/24 00: Neut % (Auto) 53.0 % 09/05/24: Lymph % (Auto) 38.8 % 09/05/24 00:26 [place] % (Auto) 6.4 % 09/05/24 00:26 Eos % (Auto) 0.7 % 09/05/24 00:26 Baso % (Auto) 0.7 % 09/05/24 00:26 Neut # (Auto) 2.91 10^3/uL (1.8-7.7) 09/05/24 00:26 Lymph # (Auto) 2.1 10^3/uL (0.8-4.8) 09/05/24 00:26 [place] # (Auto) 0.4 10^3/uL (0.2-0.9) 09/05/24 00:26 Eos # (Auto) 0.0 10^3/uL (0.0-0.8) 09/05/24 00:26 Baso # (Auto) 0.0 10^3/uL (0.0-0.1) 09/05/24 00:26 Nucleated RBC % (auto) 0 % 09/05/24 00: Nucleated RBCs # 0.0 /100WBC 09/05/24 00:26 D-Dimer 0.30 ug/mLFEU (0-0.59) 09/05/24 00:26 Sodium 144 mmol/L (136-145) 09/05/24 00:26 Potassium 3.8 mmol/L (3.5-5.1) 09/05/24 00:26 Chloride 105 mmol/L (98-107) 09/05/24 00:26 Carbon Dioxide 26 mmol/L (22-29) 09/05/24 00:26 Anion Gap 16.8 (5-19) 09/05/24 00:26 BUN 4 mg/dL (6-20) L 09/05/24 00:26 Creatinine 0.7 mg/dL (0.7-1.2) 09/05/24 00:26 GFR Calculation 127.6 mL/min (90-130) 09/05/24 00:26 Glucose 130 mg/dL (65-115) H 09/05/24 00:26 POC Glucose 164 mg/dL (70-110) H 09/05/24 00:33 Calculated Osmolality 297 mOsm/kg (285-295) H 09/05/24 00:26 Calcium 8.5 mg/dL (8.5-10.5) 09/05/24 00:26 Total Bilirubin 0.6 mg/dL (0.15-1.2) 09/05/24 00:26 AST 9 U/L (0-40) 09/05/24 00:26 ALT 9 U/L (0-41) 09/05/24 00:26 Alkaline Phosphatase 110 U/L (40-130) 09/05/24 00:26 Ammonia 108 umol/L (16-60) H 09/05/24 00:26 Total Protein 7.5 g/dL (6.6-8.7) 09/05/24 00:26 Albumin 4.7 g/dL (3.5-5.2) 09/05/24 00:26 Globulin 2.8 g/dL (1.3-4.6) 09/05/24 00:26 TSH 0.58 uIU/mL (0.27-4.20) 09/05/24 00:26 Urine Color Yellow (Yellow) 09/05/24: Urine Appearance Clear (CLEAR) 09/05/24 01: Urine pH 6.5 (5-7) 09/05/24: Ur Specific [place] 1.004 (1.005-1.030) L 09/05/24 01: Urine Protein Negative (Negative) 09/05/24: Urine Glucose (UA) Negative (Normal) 09/05/24 01: Urine Ketones Negative (Negative) 09/05/24: Urine Blood Negative (Negative) 09/05/24 01: Urine Nitrate Negative (Negative) 09/05/24: Urine Bilirubin Negative (Negative) 09/05/24 01: Urine Urobilinogen 0.2 mg/dL (Negative) 09/05/24 01: Ur Leukocyte Esterase Negative (Negative) 09/05/24 01: Urine RBC 0-2 /hpf (0-2) 09/05/24 01:27 Urine WBC 0-5 /hpf (0-5) 09/05/24 01:27 Ur Squamous Epith Cells 0-5 /hpf (0-5) 09/05/24 01: Amorphous Sediment Not Reportable 09/05/24: Urine Bacteria None seen /hpf (NONE) 09/05/24 01:27 Hyaline Casts 0-4 /lpf H 09/05/24 01:27 Salicylates < 0.3 mg/dL (3-10) L 09/05/24 00:26 Urine Opiates Screen Negative ng/mL (Negative) 09/05/24 01:27 Acetaminophen < 5.0 ug/mL (10-30) L 09/05/24 00:26 Ur Barbiturates Screen Negative ng/mL (Negative) 09/05/24 01:27 Ur Phencyclidine Scrn Negative ng/mL (Negative) 09/05/24 01:27 Ur Amphetamines Screen Negative ng/mL (Negative) 09/05/24 01:27 U Benzodiazepines Scrn Negative ng/mL (Negative) 09/05/24 01:27 Urine Cocaine Screen Negative ng/mL (Negative) 09/05/24 01:27 U Marijuana (THC) Screen Negative ng/mL (Negative) 09/05/24 01:27 Ethyl Alcohol 245 mg/dL (0-10) H 09/05/24 00:26 All radiology interpretation(s) finalized by discharge Discharge Plan Discharge Clinical Impression: Autism spectrum disorder, Alcohol intoxication Condition: Stable Prescriptions: No Action loratadine 10 mg tablet 10 mg PO DAILY PRN (Reason: allergic symptoms) Qty: 30 5RF pantoprazole 20 mg tablet,delayed release (DR/EC) 20 mg PO DAILY PRN (Reason: stomack/throat pain) Qty: 30 3RF minocycline 100 mg tablet 100 mg PO BID Qty: 20 0RF clotrimazole-betamethasone 1-0.05 % cream 1 applic topical BID 14 Days Qty: 45 1RF Referrals: Eddie Lucio MD [Primary Care Provider] - 1-3 days Activity Restrictions/Additional Instructions: Hydrate with clear liquids. Avoid alcohol. Continue your regularly scheduled medications. Return for problems. Coding Level of Care Code ED Dressmaker Garment Fitter for Dale Dumont
[2024-09-05 03:18] LABS: Covid PCR NEGATIVE (Negative); Influenza A NEGATIVE (Negative); Influenza B NEGATIVE (Negative); Respiratory Syncytial Virus Ce NEGATIVE (Negative)
[2024-09-05] MEDS: ketorolac 30 mg/mL INJ IVP (04:37)
== END 2024-09-05 08:13 | disposition home or self-care (01) ==
PROVIDERS: Emergency Provider Emergency Medicine; PCP Family Medicine Adult Medicine
DX: F84.0 Autistic disorder (principal); F10.129 Alcohol abuse with intoxication, unspecified; Y90.8 Blood alcohol level of 240 mg/100 ml or more
CPT/HCPCS: 0241U; 36416; 70450; 71045; 80053; 80306; 80307; 81001; 82140; 82962; 84443; 85025; 85378; 93005; 96374; 96375; 99285; J1630; J1885

== ENCOUNTER → 2024-12-25 16:13 | Outpatient (BNVA) | payer MEDICAID, SELFPAY ==
[2024-08-11 08:23] VITALS: BP 144/103; BMI 25.5
== END ==
PROVIDERS: PCP Family Medicine Adult Medicine; Visit Provider Family Medicine
DX: B82.9 Intestinal parasitism, unspecified (principal)
CPT/HCPCS: 87177; 87209

== ENCOUNTER 2025-01-25 14:10 | Outpatient (CLI) | payer MEDICAID, SELFPAY ==
[2025-01-25 08:50] VITALS: BP 144/103; BMI 25.5
[2025-01-26 07:40] LABS: Toxoplasma AB IGG <7.20 IU/mL; Toxoplasma AB IGM <8.00 AU/mL
== END 2025-01-25 14:11 | disposition home or self-care (01) ==
LOC: LAB 14:12
PROVIDERS: PCP Family Medicine; Visit Provider Family Medicine
DX: B82.9 Intestinal parasitism, unspecified (principal); Z20.09 Contact with and (suspected) exposure to other intestinal infectious diseases
CPT/HCPCS: 86777; 87177; 87209

== ENCOUNTER 2025-03-16 14:29 | Emergency (ER) | payer MEDICAID, SELFPAY ==
[2025-03-16 15:01] VITALS: BP 117/79; PULSE 135; TEMP 36.6; O2SAT 99; BMI 23.2
--- NOTE | 2025-03-16 16:24 | W.ED.SKABFB ---
HPI - Skin/Abscess/Foreign Bdy General: Chief complaint: Skin/Abscess/Foreign Body Stated complaint: Lt ankle snake bite Time Seen by Provider: 03/16/25 15:40 Source: patient Mode of arrival: ambulatory Limitations: no limitations History of Present Illness: Patient is a 34-year-old male who presents to the emergency department reporting a snake bite to the left ankle greater than 1 hour prior to arrival. States he was walking behind [facility] where he lives, stepped in a hole and is confident that he heard a rattlesnake. States that he lifted his leg out of the hole and noted to fang barcenas and states that he ran to the hospital requesting antivenom. Other than the small abrasion, does not report any swelling, significant pain, or other symptoms at this time. He does have a history of previous visits here with similar hallucinatory complaints, including history of reported warm infestations that were noted to not be present. He is notably anxious at this time and diaphoretic. He is requesting labs. MD complaint: insect bite/sting Onset (ago): hour(s) Location: L foot Severity: mild Context: other (Thanks snake bit him, states heard a rattlesnake) Associated symptoms: Deny chills, fever(s), nausea or vomiting Related Data Previous Rx's ?Medication ?Instructions ?Recorded loratadine 10 mg tablet 10 mg PO DAILY PRN allergic 10/29/23 symptoms #30 tabs pantoprazole 20 mg tablet,delayed 20 mg PO DAILY PRN stomack/throat 03/17/24 release pain #30 tabs buspirone 10 mg tablet 10 mg PO BID #60 tabs 01/05/25 hydroxyzine HCl 50 mg tablet 50 mg PO QID PRN anxiety #120 tabs 01/05/25 trazodone 50 mg tablet 100 mg (2 x 50 mg) PO .HS PRN 01/05/25 insomnia #60 tabs Allergies Allergy/AdvReac Type Severity Reaction Status Date / Time Alpha-Gal Allergy Intermediate ADR-Gastrointestinal Verified 03/16/25 15:08 (Cylixmxzw-Uqjwy-8,3-Gala Upset beef derived (bovine) Allergy Unknown ALGY-Difficulty Verified 03/16/25 15:08 Breathing/Hives Pork/Porcine Containing Allergy ALGY-Rash Verified 03/16/25 15:08 Products sheep derived (ovine) Allergy ALGY-Hives Verified 03/16/25 15:08 Review of Systems General: Reports: 10 or more systems reviewed and unremarkable except in HPI and below Const: Denies: fever(s), chills or fatigue Eyes: Denies: change in vision ENMT: Denies: throat pain, ear or mastoid pain or nasal discharge Card: Denies: chest pain, palpitations, swelling of feet/ankles or lightheadedness Resp: Denies: dyspnea, productive cough or wheezing GI: Denies: abdominal pain, nausea, vomiting, diarrhea or constipation : Denies: flank pain, difficulty urinating, dysuria or urinary frequency Musc: Denies: neck pain, back pain or joint pain Skin/Breast: Reports: new lesions (Abrasion to the left foot); Denies: rash Neuro: Denies: headache(s), numbness in extremities or weakness in extremities PFSH ED PFSH: Medical History Insect bite, infected Delusional disorder Post-traumatic stress disorder, chronic Autism spectrum disorder Attention deficit disorder (ADD) diagnosed as a child Borderline intellectual disability Testing on 11/03/18 reveals IQ 75 Allergy to jmzlqkdxc-lgnlr-4,3-galactose 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 GERD (gastroesophageal reflux disease) Psychiatric care Family History Mother CAD (coronary artery disease) Cancer lymphatic Denies family history of Diabetes Clotting disorder Dementia Hyperlipidemia Chronic kidney disease (CKD) Anesthesia complication Bleeding disorder Lung disease Hypertension Stroke Social History Smoking and tobacco/nicotine status: never used tobacco/nicotine Alcohol intake: never Substance/Drug Use: never Adopted: No Caregiver/support person: No Lives independently: Yes Housing: Apartment Marital status: Single Highest education level completed: High School Graduate service: No Current occupational status: employed Current occupation: Self employeed Current occupational exposures/hazards: No Pets and animals: Yes Pets & animals: dog(s) Leisure activites: sports, music, games, fishing and other Leisure activities details: snow boarding Sexually active: No Do you think of yourself as: Straight/Heterosexual Current gender identity: Male Special guille needs: No Agree to transfusion: Yes Physical Exam Const: COMMON NORMALS: no acute distress, average body habitus, patient oriented x3, no limitations, healthy appearing, alert and well nourished HENMT: COMMON NORMALS: normocephalic and atraumatic HEAD & SCALP: normocephalic and atraumatic Neck/C-Spine: COMMON NORMALS: full ROM, no lymphadenopathy, supple and no meningeal signs Resp: COMMON NORMALS: normal respiratory effort, No use of accessory muscles and clear to auscultation bilaterally AUSCULTATION: clear to auscultation bilaterally Cardio: COMMON NORMALS: regular rate and regular rhythm RATE: regular rate RHYTHM: regular rhythm Extremity: COMMON NORMALS: full ROM and capillary refill normal NARRATIVE EXTREMITY EXAM: No swelling, bruising, redness, or other abnormalities of the left lower extremity. Neuro: COMMON NORMALS: patient oriented x3 SENSORIUM/ORIENTATION: Yes alert MENINGEAL SIGNS: Yes no meningeal signs Skin: COMMON NORMALS: turgor normal NARRATIVE SKIN EXAM: Small 1 cm, very superficial linear abrasion to anterior left foot. No puncture wounds or bite barcenas noted. GENERAL SKIN EXAM: turgor normal Course Vital Signs: Vital signs: Vital Signs Temperature 97.8 F 03/16/25 15:01 Pulse Rate 135 H 03/16/25 15:01 Blood Pressure 117/79 03/16/25 15:01 Pulse Oximetry 99 03/16/25 15:01 Oxygen Delivery Me thod Room Air 03/16/25 15:01 MDM - Skin/Abscess/Foreign Bdy Medicial Decision Making Patient presents in he was bit by a snake. This was unlikely and on exam there was no evidence of pain lesion, did appear to be a superficial abrasion from stepping in a hole. He was adamant that he get labs, these were obtained and normal. Will discharge him in stable condition at this time. Lab Data 03/16/25 16:24 Laboratory Results WBC 10.78 10^3/uL (3.29-11.43) 03/16/25 16:24 RBC 5.31 10^6/uL (3.85-5.65) 03/16/25 16:24 Hgb 15.40 g/dL (11.27-16.99) 03/16/25 16:24 Hct 47.0 % (37-53) 03/16/25 16:24 MCV 88.5 fl (82-101) 03/16/25 16: MCH 29.0 pg (27-33) 03/16/25 16: MCHC 32.8 g/dL (30-55) 03/16/25 16: RDW 12.4 % (12.1-15.1) 03/16/25 16: Plt Count 423 10^3/cmm (157-399) H 03/16/25: MPV 8.9 fL (7.4-10.4) 03/16/25 16: Neut % (Auto) 81.8 % 03/16/25 16: Lymph % (Auto) 10.9 % 03/16/25: [place] % (Auto) 5.3 % 03/16/25: Eos % (Auto) 1.2 % 03/16/25: Baso % (Auto) 0.5 % 03/16/25: Neut # (Auto) 8.83 10^3/uL (1.8-7.7) H 03/16/25 16: Lymph # (Auto) 1.2 10^3/uL (0.8-4.8) 03/16/25: [place] # (Auto) 0.6 10^3/uL (0.2-0.9) 03/16/25 16: Eos # (Auto) 0.1 10^3/uL (0.0-0.8) 03/16/25: Baso # (Auto) 0.1 10^3/uL (0.0-0.1) 03/16/25: Nucleated RBC % (auto) 0 % 03/16/25: Nucleated RBCs # 0.0 /100WBC 03/16/25: PT 13.30 SECONDS (12.1-14.9) 03/16/25 16: INR 0.94 (0.8-1.2) 03/16/25 16: APTT 32.2 SECONDS (23.9-36.7) 03/16/25 16: No radiology studies performed this visit Discharge Plan Discharge Patient Disposition: Home Clinical Impression: Abrasion Condition: Stable Prescriptions: No Action loratadine 10 mg tablet 10 mg PO DAILY PRN (Reason: allergic symptoms) Qty: 30 5RF pantoprazole 20 mg tablet,delayed release (DR/EC) 20 mg PO DAILY PRN (Reason: stomack/throat pain) Qty: 30 3RF trazodone 50 mg tablet 100 mg PO .HS PRN (Reason: insomnia) Qty: 60 2RF hydroxyzine HCl 50 mg tablet 50 mg PO QID PRN (Reason: anxiety) Qty: 120 2RF buspirone 10 mg tablet 10 mg PO BID Qty: 60 2RF Discharge Orders: Discharge ED (Routine); Ordered 03/16/25 Ordered By: Mike Silva Activity Restrictions/Additional Instructions: Topical Neosporin. Ibuprofen/Tylenol for any pain. Follow-up with regular doctor. Print Language: Thai Coding Level of Care Code ED Biomedical Analytical Scientist for Dale Dumont
[2025-03-16 16:55] LABS: Basophils # 0.1 10^3/uL (0.0-0.1); Basophils % 0.5 %; Eosinophils # 0.1 10^3/uL (0.0-0.8); Eosinophils % 1.2 %; Lymphocytes # 1.2 10^3/uL (0.8-4.8); Lymphocytes % 10.9 %; Mean Corpuscular HGB Conc 32.8 g/dL (30-55); Mean Corpuscular Volume 88.5 fl (82-101); Mean Platelet Volume 8.9 fL (7.4-10.4); Monocytes # 0.6 10^3/uL (0.2-0.9); Monocytes % 5.3 %; Neutrophils # 8.83 10^3/uL (1.8-7.7); Neutrophils % 81.8 %; Nucleated Red Blood Cells % 0 %; Platelet Count 423 10^3/cmm (157-399); Red Blood Count 5.31 10^6/uL (3.85-5.65); Red Cell Distribution Width 12.4 % (12.1-15.1); White Blood Count 10.78 10^3/uL (3.29-11.43)
[2025-03-16 17:10] LABS: INR 0.94 (0.8-1.2)
[2025-03-16 17:11] LABS: Partial Thromboplastin Time 32.2 SECONDS (23.9-36.7)
== END 2025-03-16 17:18 | disposition home or self-care (01) ==
PROVIDERS: Emergency Provider Physician Assistant
DX: S90.512A Abrasion, left ankle, initial encounter (principal); X58.XXXA Exposure to other specified factors, initial encounter
CPT/HCPCS: 36415; 81000; 85025; 85610; 85730; 99283

== ENCOUNTER 2025-03-21 16:57 | Emergency (ER) | payer MEDICAID, SELFPAY ==
[2025-03-21 17:47] VITALS: BP 124/85; PULSE 101; TEMP 36.7; O2SAT 100; BMI 22.9
--- NOTE | 2025-03-21 18:40 | W.ED.GENADLT ---
HPI - General Adult General: Chief complaint: General Medical Stated complaint: worms in poo - possible bug bites Time Seen by Provider: 03/21/25 18:31 Source: patient Mode of arrival: ambulatory Limitations: no limitations History of Present Illness: Patient is a 34-year-old male with multiple prior visits with similar complaints, who is currently complaining of snakebite and worms in his stool. Has multiple prior visits including believing worms are coming out of his penis as well as out of his skin, states that he saw roundworms in his stool today. Also states that a snake got through his door and bit him on the back of his thigh, and a brown recluse also separately bit him on his right hand. No fever, nausea/vomiting, or other symptoms though he is notably anxious and shaking during triage and at time of examination. MD complaint: Worms in stool, snake/spider bite Associated symptoms: Deny chest pain, dyspnea, headache(s), nausea, rash or vomiting Related Data Previous Rx's ?Medication ?Instructions ?Recorded loratadine 10 mg tablet 10 mg PO DAILY PRN allergic 10/29/23 symptoms #30 tabs pantoprazole 20 mg tablet,delayed 20 mg PO DAILY PRN stomack/throat 03/17/24 release pain #30 tabs buspirone 10 mg tablet 10 mg PO BID #60 tabs 01/05/25 hydroxyzine HCl 50 mg tablet 50 mg PO QID PRN anxiety #120 tabs 01/05/25 trazodone 50 mg tablet 100 mg (2 x 50 mg) PO .HS PRN 01/05/25 insomnia #60 tabs Allergies Allergy/AdvReac Type Severity Reaction Status Date / Time Alpha-Gal Allergy Intermediate ADR-Gastrointestinal Verified 03/21/25 17:54 (Rvidrtmhc-Rtmcl-8,3-Gala Upset beef derived (bovine) Allergy Unknown ALGY-Difficulty Verified 03/21/25 17:54 Breathing/Hives Pork/Porcine Containing Allergy ALGY-Rash Verified 03/21/25 17:54 Products sheep derived (ovine) Allergy ALGY-Hives Verified 03/21/25 17:54 Review of Systems General: Reports: 10 or more systems reviewed and unremarkable except in HPI and below Const: Reports: other (Snakebite, spider bite, worms in stool); Denies: fever(s) or chills Card: Denies: chest pain Resp: Denies: dyspnea GI: Denies: abdominal pain, nausea, vomiting or diarrhea Musc: Denies: extremity pain or joint pain Skin/Breast: Denies: rash, skin pain, skin tenderness or new lesions Neuro: Denies: headache(s) PFSH ED PFSH: Medical History Insect bite, infected Delusional disorder Post-traumatic stress disorder, chronic Autism spectrum disorder Attention deficit disorder (ADD) diagnosed as a child Borderline intellectual disability Testing on 11/03/18 reveals IQ 75 Allergy to bfrnjgqpd-ejyun-3,3-galactose 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 GERD (gastroesophageal reflux disease) Psychiatric care Family History Mother CAD (coronary artery disease) Cancer lymphatic Denies family history of Diabetes Clotting disorder Dementia Hyperlipidemia Chronic kidney disease (CKD) Anesthesia complication Bleeding disorder Lung disease Hypertension Stroke Social History Smoking and tobacco/nicotine status: never used tobacco/nicotine Alcohol intake: never Substance/Drug Use: never Adopted: No Caregiver/support person: No Lives independently: Yes Housing: Apartment Marital status: Single Highest education level completed: High School Graduate service: No Current occupational status: employed Current occupation: Self employeed Current occupational exposures/hazards: No Pets and animals: Yes Pets & animals: dog(s) Leisure activites: sports, music, games, fishing and other Leisure activities details: snow boarding Sexually active: No Do you think of yourself as: Straight/Heterosexual Current gender identity: Male Special guille needs: No Agree to transfusion: Yes Physical Exam Const: COMMON NORMALS: patient oriented x3 and alert GENERAL APPEARANCE: anxious OTHER: Notably shaking and anxious during examination HENMT: COMMON NORMALS: normocephalic and atraumatic HEAD & SCALP: normocephalic and atraumatic Neck/C-Spine: COMMON NORMALS: full ROM, no lymphadenopathy, supple and no meningeal signs Resp: COMMON NORMALS: normal respiratory effort, No use of accessory muscles and clear to auscultation bilaterally AUSCULTATION: clear to auscultation bilaterally Cardio: COMMON NORMALS: regular rate and regular rhythm RATE: regular rate RHYTHM: regular rhythm Extremity: COMMON NORMALS: full ROM and capillary refill normal Neuro: COMMON NORMALS: patient oriented x3 SENSORIUM/ORIENTATION: Yes alert MENINGEAL SIGNS: Yes no meningeal signs Psych: APPEARANCE: Yes unkempt ATTITUDE: Yes paranoid ACTIVITY/MOTOR BEHAVIOR: Yes Avoids eye contact (attititude/behavior) SPEECH: Yes rapid and Yes Pressured speech present MOOD & AFFECT: Yes anxious Skin: COMMON NORMALS: turgor normal NARRATIVE SKIN EXAM: No evidence of snake or spider bite. To the posterior left thigh, there are 2 separate abrasions that appear to be self-inflicted. No bite or other wounds to right hand where he is reporting spider bite. GENERAL SKIN EXAM: turgor normal Course Vital Signs: Vital signs: Vital Signs Temperature 98.0 F 03/21/25 17:47 Pulse Rate 101 H 03/21/25 17:47 Blood Pressure 124/85 03/21/25 17:47 Pulse Oximetry 100 03/21/25 17:47 Oxygen Delivery Me thod Room Air 03/21/25 17:47 MDM - General Adult Medical Decision Making Patient presents complaining of a snake and spider bite, as well as worms in the stool. He has multiple presentations to either here or the urgent care with similar complaints, on exam there is no evidence that he was bitten by either snake or spider and he has no other symptoms to report. Notably anxious, I offered him referral to PCP to discuss these complaints and I do feel that he would benefit from further psychiatric care. Initially denies but then later agrees to following up with primary care. No further action, labs, or other intervention at this time. No radiology studies performed this visit Discharge Plan Discharge Patient Disposition: Home Clinical Impression: Skin complaints Condition: Stable Prescriptions: No Action loratadine 10 mg tablet 10 mg PO DAILY PRN (Reason: allergic symptoms) Qty: 30 5RF pantoprazole 20 mg tablet,delayed release (DR/EC) 20 mg PO DAILY PRN (Reason: stomack/throat pain) Qty: 30 3RF trazodone 50 mg tablet 100 mg PO .HS PRN (Reason: insomnia) Qty: 60 2RF hydroxyzine HCl 50 mg tablet 50 mg PO QID PRN (Reason: anxiety) Qty: 120 2RF buspirone 10 mg tablet 10 mg PO BID Qty: 60 2RF Discharge Orders: Discharge ED (Routine); Ordered 03/21/25 Ordered By: Mike Silva Activity Restrictions/Additional Instructions: Please establish with and follow-up with your regular doctor. May collect a stool sample to take in for evaluation. Print Language: Lao Coding Level of Care Code ED Bridge Painter Helper for Dale Dumont
[2025-03-21 18:45] VITALS: BP 117/76; PULSE 92; O2SAT 97
--- NOTE | 2025-03-23 09:11 | DCPLANNER ---
Message sent to clinics to establish a PCP- Medical Decision Making Patient presents complaining of a snake and spider bite, as well as worms in the stool. He has multiple presentations to either here or the urgent care with similar complaints, on exam there is no evidence that he was bitten by either snake or spider and he has no other symptoms to report. Notably anxious, I offered him referral to PCP to discuss these complaints and I do feel that he would benefit from further psychiatric care. Initially denies but then later agrees to following up with primary care. No further action, labs, or other intervention at this time. No radiology studies performed this visit
== END 2025-03-21 18:46 | disposition home or self-care (01) ==
PROVIDERS: Emergency Provider Physician Assistant
DX: L98.8 Other specified disorders of the skin and subcutaneous tissue (principal)
CPT/HCPCS: 99281

== ENCOUNTER 2025-03-23 05:06 | Emergency (ER) | payer MEDICAID, SELFPAY ==
[2025-03-23 05:07] VITALS: BP 126/91; PULSE 96; RESP 18; TEMP 36.7; O2SAT 99; BMI 22.9
[2025-03-23 05:12] VITALS: BP 126/91; PULSE 99; RESP 16; O2SAT 99
[2025-03-23 05:20] VITALS: BP 125/82; PULSE 85; RESP 16; O2SAT 99
--- NOTE | 2025-03-23 05:20 | W.ED.ANIMALB ---
HPI - Animal Bite General: Chief Complaint: Animal Bite Stated Complaint: possible snake bite ? Time Seen by Provider: 03/23/25 05:12 Source: patient and EMS Mode of arrival: EMS Limitations: no limitations History of Present Illness: 34-year-old male states that he is bit by an animal yesterday posterior left knee. He is unsure what was he thought maybe a snake he does have a scab with some slight erythema he has some mild pain denies any fever denies any swelling Associated symptoms: Deny chills, fever(s) or headache(s) Related Data Previous Rx's ?Medication ?Instructions ?Recorded loratadine 10 mg tablet 10 mg PO DAILY PRN allergic 10/29/23 symptoms #30 tabs pantoprazole 20 mg tablet,delayed 20 mg PO DAILY PRN stomack/throat 03/17/24 release pain #30 tabs buspirone 10 mg tablet 10 mg PO BID #60 tabs 01/05/25 hydroxyzine HCl 50 mg tablet 50 mg PO QID PRN anxiety #120 tabs 01/05/25 trazodone 50 mg tablet 100 mg (2 x 50 mg) PO .HS PRN 01/05/25 insomnia #60 tabs cephalexin 500 mg capsule 500 mg PO TID 7 days #21 caps 03/23/25 Allergies Allergy/AdvReac Type Severity Reaction Status Date / Time Alpha-Gal Allergy Intermediate ADR-Gastrointestinal Verified 03/21/25 17:54 (Wkujmxzgo-Kjihn-9,3-Gala Upset beef derived (bovine) Allergy Unknown ALGY-Difficulty Verified 03/21/25 17:54 Breathing/Hives Pork/Porcine Containing Allergy ALGY-Rash Verified 03/21/25 17:54 Products sheep derived (ovine) Allergy ALGY-Hives Verified 03/21/25 17:54 Review of Systems Const: Denies: fever(s), chills, body aches or change in appetite ENMT: Denies: throat pain or dental pain Card: Denies: chest pain Resp: Denies: dyspnea GI: Denies: abdominal pain, nausea, vomiting or diarrhea Musc: Denies: neck pain or back pain Skin/Breast: Reports: erythema; Denies: rash Neuro: Denies: headache(s) PFSH ED PFSH: Medical History Insect bite, infected Delusional disorder Post-traumatic stress disorder, chronic Autism spectrum disorder Attention deficit disorder (ADD) diagnosed as a child Borderline intellectual disability Testing on 11/03/18 reveals IQ 75 Allergy to ihxdcraow-gjolf-1,3-galactose 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 GERD (gastroesophageal reflux disease) Psychiatric care Family History Mother CAD (coronary artery disease) Cancer lymphatic Denies family history of Diabetes Clotting disorder Dementia Hyperlipidemia Chronic kidney disease (CKD) Anesthesia complication Bleeding disorder Lung disease Hypertension Stroke Social History Smoking and tobacco/nicotine status: never used tobacco/nicotine Alcohol intake: never Substance/Drug Use: never Adopted: No Caregiver/support person: No Lives independently: Yes Housing: Apartment Marital status: Single Highest education level completed: High School Graduate service: No Current occupational status: employed Current occupation: Self employeed Current occupational exposures/hazards: No Pets and animals: Yes Pets & animals: dog(s) Leisure activites: sports, music, games, fishing and other Leisure activities details: snow boarding Sexually active: No Do you think of yourself as: Straight/Heterosexual Current gender identity: Male Special guille needs: No Agree to transfusion: Yes Physical Exam Const: COMMON NORMALS: no acute distress, patient oriented x3 and healthy appearing HENMT: COMMON NORMALS: normocephalic and atraumatic HEAD & SCALP: normocephalic and atraumatic Eye: COMMON NORMALS: conjunctivae normal CONJUNCTIVA: Yes conjunctivae normal Neck/C-Spine: COMMON NORMALS: full ROM and supple Chest: COMMONS NORMALS: normal inspection of the chest Resp: COMMON NORMALS: normal respiratory effort Cardio: COMMON NORMALS: regular rate RATE: regular rate Extremity: COMMON NORMALS: full ROM Neuro: COMMON NORMALS: patient oriented x3, moves all extremities and no focal motor deficits Psych: COMMON NORMALS: mental status grossly normal, Normal thought process present and cooperative THOUGHT PROCESS: Normal thought process present Skin: NARRATIVE SKIN EXAM: Small less than 1 cm wound to posterior left knee likely an animal bite with slight erythema Course Vital Signs: Vital signs: Vital Signs Temperature 98.0 F 03/23/25 05:07 Pulse Rate 85 03/23/25 05:20 Respiratory Rate 16 03/23/25 05:20 Blood Pressure 125/82 03/23/25 05:20 Pulse Oximetry 99 03/23/25 05:20 Oxygen Delivery Me thod Room Air 03/23/25 05:12 MDM - Animal Bite Medical Decision Making Patient presents here with an likely animal bite with slight cellulitis no severe infection will start antibiotics patient is stable for discharge at this time No radiology studies performed this visit Discharge Plan Discharge Patient Disposition: Home Clinical Impression: Animal bite, Cellulitis Condition: Stable Prescriptions: New cephalexin 500 mg capsule 500 mg PO TID 7 Days Qty: 21 0RF No Action loratadine 10 mg tablet 10 mg PO DAILY PRN (Reason: allergic symptoms) Qty: 30 5RF pantoprazole 20 mg tablet,delayed release (DR/EC) 20 mg PO DAILY PRN (Reason: stomack/throat pain) Qty: 30 3RF trazodone 50 mg tablet 100 mg PO .HS PRN (Reason: insomnia) Qty: 60 2RF hydroxyzine HCl 50 mg tablet 50 mg PO QID PRN (Reason: anxiety) Qty: 120 2RF buspirone 10 mg tablet 10 mg PO BID Qty: 60 2RF Discharge Orders: Discharge ED (Routine); Ordered 03/23/25 Ordered By: Geo Mar Discharge Diet: Advance as tolerated Discharge Activity: Resume usual activity Patient Instructions: Animal Bite (ED) Print Language: Paraguayan Coding Level of Care Code ED Open Hearth Helper for Dale Dumont
[2025-03-23] MEDS: HYDROcodone-acetaminophen 5-325 mg Tablet 1 TAB PO (05:26)
== END 2025-03-23 05:26 | disposition home or self-care (01) ==
PROVIDERS: Emergency Provider Emergency Medicine
DX: L03.116 Cellulitis of left lower limb (principal)
CPT/HCPCS: 99283; J9999

== ENCOUNTER 2025-03-29 22:39 | Emergency (ER) | payer MEDICAID, SELFPAY ==
[2025-03-29 22:45] VITALS: BP 114/78; PULSE 100; RESP 19; TEMP 36.9; O2SAT 100; BMI 22.9
[2025-03-29 23:17] VITALS: BP 121/79; PULSE 94; O2SAT 99
[2025-03-29 23:29] LABS: Amphetamines Screen Urine Positive (Negative); Barbiturates Screen Urine Negative (Negative); Benzodiazepines Screen Urine Negative (Negative); Cocaine Screen Urine Negative (Negative); Opiate Screen Urine Negative (Negative); PCP Screen Urine Negative (Negative); THC Screen Urine Negative (Negative)
[2025-03-29 23:36] LABS: Basophils % 0.3 %; Eosinophils # 0.4 10^3/uL (0.0-0.8); Eosinophils % 5.9 %; Hematocrit 43.6 % (37-53); Lymphocytes # 1.6 10^3/uL (0.8-4.8); Lymphocytes % 25.5 %; Mean Corpuscular HGB Conc 33.7 g/dL (30-55); Mean Corpuscular Hemoglobin 29.2 pg (27-33); Mean Corpuscular Volume 86.5 fl (82-101); Mean Platelet Volume 8.6 fL (7.4-10.4); Monocytes # 0.5 10^3/uL (0.2-0.9); Monocytes % 8.5 %; Neutrophils % 59.5 %; Nucleated Red Blood Cells % 0 %; Platelet Count 406 10^3/cmm (157-399); Red Blood Count 5.04 10^6/uL (3.85-5.65); Red Cell Distribution Width 12.1 % (12.1-15.1); White Blood Count 6.23 10^3/uL (3.29-11.43)
--- NOTE | 2025-03-29 23:39 | W.ED.ALLEREA ---
HPI - Allergic Reaction General: Chief complaint: Allergic Reaction Stated complaint: snake bite?/ allergic rxn Time Seen by Provider: 03/29/25 22:52 Source: patient Mode of arrival: EMS Limitations: no limitations History of Present Illness: HPI narrative: Patient is a 34-year-old male with psychiatric history and history of meth abuse who presents emergency department by ambulance complaining of snakebite and allergic reaction. He has been seen here multiple times recently with complaining of a snake bite, each time there has been no evidence of anything biting him. States that he has alpha gal and that the reported snake bite caused a flareup of this. States normally he takes Benadryl but did not have any today. Vitals normal at this time, no evidence of any bite. MD complaint: allergic reaction Onset (ago): hour(s) Exposure: other (Reported snakebite) Associated symptoms: Deny abdominal pain, nausea or vomiting Related Data Previous Rx's ?Medication ?Instructions ?Recorded loratadine 10 mg tablet 10 mg PO DAILY PRN allergic 10/29/23 symptoms #30 tabs pantoprazole 20 mg tablet,delayed 20 mg PO DAILY PRN stomack/throat 03/17/24 release pain #30 tabs buspirone 10 mg tablet 10 mg PO BID #60 tabs 01/05/25 hydroxyzine HCl 50 mg tablet 50 mg PO QID PRN anxiety #120 tabs 01/05/25 trazodone 50 mg tablet 100 mg (2 x 50 mg) PO .HS PRN 01/05/25 insomnia #60 tabs cephalexin 500 mg capsule 500 mg PO TID 7 days #21 caps 03/23/25 Allergies Allergy/AdvReac Type Severity Reaction Status Date / Time Alpha-Gal Allergy Intermediate ADR-Gastrointestinal Verified 03/29/25 22:51 (Ibafvaftn-Iguoj-9,3-Gala Upset beef derived (bovine) Allergy Unknown ALGY-Difficulty Verified 03/29/25 22:51 Breathing/Hives Pork/Porcine Containing Allergy ALGY-Rash Verified 03/29/25 22:51 Products sheep derived (ovine) Allergy ALGY-Hives Verified 03/29/25 22:51 Review of Systems General: Reports: 10 or more systems reviewed and unremarkable except in HPI and below Const: Denies: fever(s) or chills Card: Denies: chest pain Resp: Denies: dyspnea GI: Denies: abdominal pain, nausea, vomiting or diarrhea Musc: Denies: extremity pain or joint pain Skin/Breast: Reports: rash and new lesions (Reported snake bite); Denies: skin pain or skin tenderness Neuro: Denies: headache(s) PFSH ED PFSH: Medical History Insect bite, infected Delusional disorder Post-traumatic stress disorder, chronic Autism spectrum disorder Attention deficit disorder (ADD) diagnosed as a child Borderline intellectual disability Testing on 11/03/18 reveals IQ 75 Allergy to rrqplafcv-hhevh-8,3-galactose 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 GERD (gastroesophageal reflux disease) Psychiatric care Family History Mother CAD (coronary artery disease) Cancer lymphatic Denies family history of Diabetes Clotting disorder Dementia Hyperlipidemia Chronic kidney disease (CKD) Anesthesia complication Bleeding disorder Lung disease Hypertension Stroke Social History Smoking and tobacco/nicotine status: never used tobacco/nicotine Alcohol intake: never Substance/Drug Use: never Adopted: No Caregiver/support person: No Lives independently: Yes Housing: Apartment Marital status: Single Highest education level completed: High School Graduate service: No Current occupational status: employed Current occupation: Self employeed Current occupational exposures/hazards: No Pets and animals: Yes Pets & animals: dog(s) Leisure activites: sports, music, games, fishing and other Leisure activities details: snow boarding Sexually active: No Do you think of yourself as: Straight/Heterosexual Current gender identity: Male Special guille needs: No Agree to transfusion: Yes Physical Exam Const: COMMON NORMALS: no acute distress, patient oriented x3, healthy appearing, alert and well nourished GENERAL APPEARANCE: anxious HENMT: COMMON NORMALS: normocephalic and atraumatic HEAD & SCALP: normocephalic and atraumatic Neck/C-Spine: COMMON NORMALS: full ROM, no lymphadenopathy, supple and no meningeal signs Resp: COMMON NORMALS: normal respiratory effort, No use of accessory muscles and clear to auscultation bilaterally AUSCULTATION: clear to auscultation bilaterally Cardio: COMMON NORMALS: regular rate and regular rhythm RATE: regular rate RHYTHM: regular rhythm Extremity: COMMON NORMALS: full ROM and capillary refill normal Neuro: COMMON NORMALS: patient oriented x3 SENSORIUM/ORIENTATION: Yes alert MENINGEAL SIGNS: Yes no meningeal signs Skin: COMMON NORMALS: no rashes or lesions noted, no wounds and turgor normal NARRATIVE SKIN EXAM: There is no evidence of a snake bite to reported area, no redness or erythema. No rash. GENERAL SKIN EXAM: no rashes or lesions noted and turgor normal Course Vital Signs: Vital signs: Vital Signs Temperature 98.4 F 03/29/25 22:45 Pulse Rate 94 03/29/25 23:17 Respiratory Rate 19 H 03/29/25 22:45 Blood Pressure 121/79 03/29/25 23:17 Pulse Oximetry 99 03/29/25 23:17 Oxygen Delivery Me thod Room Air 03/29/25 23:17 MDM - Allergic Reaction Medical Decision Making Patient presented by ambulance stating that he was bitten by a snake. Has been seen here numerous times in the past with similar complaints, also has a history of meth abuse that exacerbates this will most likely. Ordered lab work just in case, CBC was negative. Urine did show positive amphetamines however he does note that he takes Adderall, this could simply be for the Adderall however with his history of substance abuse unknown. He denies any any recent meth use. Otherwise I feel that this is related to either schizophrenia or his generalized anxiety disorder, I had set him up with regular doctor last time and informed him to follow-up. Discharged in stable condition at this time. Lab Data 03/29/25 23: Laboratory Results WBC 6.23 10^3/uL (3.29-11.43) 03/29/25 23: RBC 5.04 10^6/uL (3.85-5.65) 03/29/25 23: Hgb 14.70 g/dL (11.27-16.99) 03/29/25 23: Hct 43.6 % (37-53) 03/29/25 23: MCV 86.5 fl (82-101) 03/29/25 23: MCH 29.2 pg (27-33) 03/29/25 23: MCHC 33.7 g/dL (30-55) 03/29/25 23: RDW 12.1 % (12.1-15.1) 03/29/25 23:27 Plt Count 406 10^3/cmm (157-399) H 03/29/25 23:27 MPV 8.6 fL (7.4-10.4) 03/29/25 23:27 Neut % (Auto) 59.5 % 03/29/25 23: Lymph % (Auto) 25.5 % 03/29/25 23: [place] % (Auto) 8.5 % 03/29/25 23: Eos % (Auto) 5.9 % 03/29/25 23: Baso % (Auto) 0.3 % 03/29/25 23: Neut # (Auto) 3.70 10^3/uL (1.8-7.7) 03/29/25 23: Lymph # (Auto) 1.6 10^3/uL (0.8-4.8) 03/29/25 23: [place] # (Auto) 0.5 10^3/uL (0.2-0.9) 03/29/25 23: Eos # (Auto) 0.4 10^3/uL (0.0-0.8) 03/29/25 23: Baso # (Auto) 0.0 10^3/uL (0.0-0.1) 03/29/25 23:27 Nucleated RBC % (auto) 0 % 03/29/25 23: Nucleated RBCs # 0.0 /100WBC 03/29/25 23:27 Urine Opiates Screen Negative ng/mL (Negative) 03/29/25 23:14 Ur Barbiturates Screen Negative ng/mL (Negative) 03/29/25 23:14 Ur Phencyclidine Scrn Negative ng/mL (Negative) 03/29/25 23:14 Ur Amphetamines Screen Positive ng/mL (Negative) H 03/29/25 23:14 U Benzodiazepines Scrn Negative ng/mL (Negative) 03/29/25 23:14 Urine Cocaine Screen Negative ng/mL (Negative) 03/29/25 23:14 U Marijuana (THC) Screen Negative ng/mL (Negative) 03/29/25 23:14 No radiology studies performed this visit Discharge Plan Discharge Patient Disposition: Home Clinical Impression: Generalized anxiety disorder Condition: Stable Prescriptions: No Action loratadine 10 mg tablet 10 mg PO DAILY PRN (Reason: allergic symptoms) Qty: 30 5RF pantoprazole 20 mg tablet,delayed release (DR/EC) 20 mg PO DAILY PRN (Reason: stomack/throat pain) Qty: 30 3RF trazodone 50 mg tablet 100 mg PO .HS PRN (Reason: insomnia) Qty: 60 2RF hydroxyzine HCl 50 mg tablet 50 mg PO QID PRN (Reason: anxiety) Qty: 120 2RF buspirone 10 mg tablet 10 mg PO BID Qty: 60 2RF cephalexin 500 mg capsule 500 mg PO TID 7 Days Qty: 21 0RF Discharge Orders: Discharge ED (Routine); Ordered 03/29/25 Ordered By: Mike Silva Activity Restrictions/Additional Instructions: Call pest control to clear your area of any snakes if you do believe a snake is present. Follow-up with your regular doctor. Print Language: [place] Coding Level of Care Code ED Backing In Machine Tender for Dale Dumont
[2025-03-29] MEDS: diphenhydrAMINE 50 mg/mL SDV 1mL IM (23:46)
[2025-03-30 00:18] VITALS: BP 135/88; PULSE 91; O2SAT 99
== END 2025-03-30 00:19 | disposition home or self-care (01) ==
PROVIDERS: Emergency Provider Physician Assistant
DX: F41.1 Generalized anxiety disorder (principal)
CPT/HCPCS: 36415; 80306; 85025; 96372; 99284; J1200

== ENCOUNTER 2025-04-04 17:31 | Inpatient (IN) | payer MEDICAID, SELFPAY ==
[2025-04-04 17:34] VITALS: BP 150/96; PULSE 94; RESP 16; TEMP 36.5; O2SAT 97; BMI 22.9
[2025-04-04 18:02] LABS: Bilirubin Urine Negative (Negative); Blood Urine Negative (Negative); Glucose Urine UA Negative (Normal); Ketones Urine Negative (Negative); Leukocyte Esterase Urine Negative (Negative); Nitrate Urine Negative (Negative); Protein Urine Negative (Negative); Specific Gravity, Urine 1.008 (1.005-1.030); Urine Appearance Clear (CLEAR); Urine Color Yellow (Yellow); Urobilinogen Urine 0.2 mg/dL (Negative); pH Urine 8.5 (5-7)
[2025-04-04 18:07] LABS: Add Urine Microscopic? YES; Bacteria Urine None Seen /hpf; Hyaline Casts Urine 0-4 /lpf; RBC Urine 0-2 /hpf (0-2); Squamous Epithelial Cell Urine 0-5 /hpf (0-5); WBC Urine 0-5 /hpf (0-5)
[2025-04-04 18:09] LABS: Basophils % 0.7 %; Eosinophils # 0.4 10^3/uL (0.0-0.8); Hematocrit 43.1 % (37-53); Lymphocytes # 1.7 10^3/uL (0.8-4.8); Lymphocytes % 29.6 %; Mean Corpuscular HGB Conc 32.7 g/dL (30-55); Mean Corpuscular Volume 88.7 fl (82-101); Mean Platelet Volume 8.8 fL (7.4-10.4); Monocytes # 0.5 10^3/uL (0.2-0.9); Monocytes % 8.3 %; Neutrophils # 3.19 10^3/uL (1.8-7.7); Neutrophils % 54.2 %; Nucleated Red Blood Cells % 0 %; Platelet Count 405 10^3/cmm (157-399); Red Blood Count 4.86 10^6/uL (3.85-5.65); White Blood Count 5.88 10^3/uL (3.29-11.43)
[2025-04-04 18:11] LABS: Amphetamines Screen Urine Positive (Negative); Barbiturates Screen Urine Negative (Negative); Benzodiazepines Screen Urine Negative (Negative); Cocaine Screen Urine Negative (Negative); Opiate Screen Urine Negative (Negative); PCP Screen Urine Negative (Negative); THC Screen Urine Negative (Negative)
[2025-04-04 18:17] LABS: Add Urine Culture? No
[2025-04-04 18:19] VITALS: RESP 18; O2SAT 99
[2025-04-04 18:25] LABS: Acetaminophen < 5.0 ug/mL (10-30); Alanine Aminotransferase 10 U/L (0-41); Albumin Level 4.5 g/dL (3.5-5.2); Alcohol Level < 10 mg/dL (0-10); Alkaline Phosphatase 99 U/L (40-130); Anion Gap 16.4 (5-19); Aspartate Amino Transferase 10 U/L (0-40); Blood Urea Nitrogen 10 mg/dL (6-20); Calcium 9.1 mg/dL (8.5-10.5); Carbon Dioxide 27 mmol/L (22-29); Chloride 102 mmol/L (98-107); Creatinine Clr Calc Pharmacy 175.3315; Globulin 2.6 g/dL (1.3-4.6); Glomerular Filtration Rate 152.4 mL/min (90-130); Glucose 94 mg/dL (65-115); Osmolality Calculated 291 mOsm/kg (285-295); Potassium 4.4 mmol/L (3.5-5.1); Salicylate < 0.3 mg/dL (3-10); Sodium 141 mmol/L (136-145); Total Bilirubin 0.4 mg/dL (0.15-1.2); Total Protein 7.1 g/dL (6.6-8.7)
--- NOTE | 2025-04-04 18:25 | PC.NURSE ---
96 hr rights reviewed with pt @0204 with assistance of [facility] emergency communications officer Shan. All education reviewed with pt at this time. No verbalized questions or concerns for HS when assessed. Pt copy was left @bedside with pt. Pt verbalized no needs, and had already received a sandwich and drink.
[2025-04-04] MEDS: lidocaine 2% viscous 15 ML, aluminum-mag hydrox-simethicon 30 ML, sucralfate oral liq 1 GM PO (18:29)
--- NOTE | 2025-04-04 18:44 | ED.C_ITS ---
HPI - Psych 2 General: Chief Complaint: Psychiatric Symptoms Stated Complaint: 96 Time Seen by Provider: 04/04/25 17:51 History of Present Illness: 34-year-old male sent in for crisis inte rvention after being seen at behavioral health outpatient. Patient is having a psychosis episode and is needing medical clearance. The behavioral health outpatient is already discussed with the behavioral health floor for a 96-hour hold and admission. Patient is having a psychosis episode in which she cannot make good decisions and believes that he has snakes living in his air mattress that are popping up biting him along with other psychosis episodes. Related Data Previous Rx's ?Medication ?Instructions ?Recorded loratadine 10 mg tablet 10 mg PO DAILY PRN allergic 10/29/23 symptoms #30 tabs pantoprazole 20 mg tablet,delayed 20 mg PO DAILY PRN s tomack/throat 03/17/24 release pain #30 tabs buspirone 10 mg tablet 10 mg PO BID #60 tabs hydroxyzine HCl 50 mg tablet 50 mg PO QID PRN anxiety #120 tabs 01/05/25 trazodone 50 mg tablet 100 mg (2 x 50 mg) PO .HS [place] N 01/05/25 insomnia #60 tabs diphenhydramine HCl 25 mg capsule 25 mg PO Q8H PRN all ergic reaction 03/30/25 (Benadryl) #30 caps Allergies Allergy/AdvReac Type Severity Reaction Status Date / Time Alpha-Gal Allergy Intermediate ADR-Gastrointestinal Verified 04/04/25 17:44 (Jiznptgzg-Lgjbj-7,3-Gala Upset beef derived (bovine) Allergy Unknown ALGY-Difficulty Verified 04/04/25 17:44 Breathing/Hives Pork/Porcine Containing Allergy ALGY-Rash Verified 04/04/25 17:44 Products sheep derived (ovine) Allergy ALGY-Hives Verified 04/04/25 17:44 Review of Systems 2 Const: Denies: fever(s) or chills Card: Denies: chest pain or palpitations Resp: Denies: dyspnea or productive cough Musc: Denies: neck pain or back pain Psych: Reports: other (Please see HPI) PFSH ED 2 PFSH: Medical History Insect bite, infected Delusional disorder Post-traumatic stress disorder, chronic Autism spectrum disorder Attention deficit disorder (ADD) diagnosed as a child Borderline intellectual disability Testing on 11/03/18 reveals IQ 75 Allergy to ksomemhug-wddfv-1,3-galactose 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 GERD (gastroesophageal reflux disease) Psychiatric care Family History Mother CAD (coronary artery disease) Cancer lymphatic Denies family history of Diabetes Clotting disorder Dementia Hyperlipidemia Chronic kidney disease (CKD) Anesthesia complication Bleeding disorder Lung disease Hypertension Stroke Social History Smoking and tobacco/nicotine status: never used tobacco/nicotine Alcohol intake: never Substance/Drug Use: never Adopted: No Caregiver/support person: No Lives independently: Yes Housing: Apartment Marital status: Single Highest education level completed: High School Graduate service: No Current occupational status: employed Current occupation: Self employeed Current occupational exposures/hazards: No Pets and animals: Yes Pets & animals: dog(s) Leisure activites: sports, music, games, fishing and other Leisure activities details: snow boarding Sexually active: No Do you think of yourself as: Straight/Heterosexual Current gender identity: Male Special guille needs: No Agree to transfusion: Yes Physical Exam 2 Const: COMMON NORMALS: patient oriented x3 GENERAL APPEARANCE: anxious and disheveled Resp: COMMON NORMALS: normal respiratory effort and clear to auscultation bilaterally AUSCULTATION: clear to auscultation bilaterally Cardio: COMMON NORMALS: regular rate and regular rhythm RATE: regular rate RHYTHM: regular rhythm GI: COMMON NORMALS: Soft to palpation and non-tender PALPATION: Yes Soft to palpation Neuro: COMMON NORMALS: patient oriented x3, CN's II-XII intact bilaterally, moves all extremities and no focal motor deficits Psych: SPEECH: Yes rapid MOOD & AFFECT: Yes anxious THOUGHT PROCESS: I llogical thought process present INSIGHT: Poor insight present (Psych) J UDGEMENT: Poor judgement present (Psych) Course 2 Vital Signs: Vital signs: Vital Signs Temperature 97.6 F 04/04/25 20:20 Pulse Rate 103 H 04/04/25 20:20 Respiratory Rate 18 04/04/25 20:20 Blood Pressure 130/84 04/04/25 20:20 Pulse Oximetry 98 04/04/25 20:20 Oxygen Delivery Me thod Room Air 04/04/25 20:20 MDM - Psych Medical Decision Making Patient medically cleared for admission. Patient is labs were reviewed and show positive amphetamines but no significant acute findings. Patient was accepted for admission to the neuro behavioral psych unit by Dr. Jarquin. Patient was transferred in stable condition. Lab Data 04/04/25 18:00 04/04/25 18:00 Laboratory Results WBC 5.88 10^3/uL (3.29-11.43) 04/04/25 18:00 RBC 4.86 10^6/uL (3.85-5.65) 04/04/25 18:00 Hgb 14.10 g/dL (11.27-16.99) 04/04/25 18:00 Hct 43.1 % (37-53) 04/04/25 18:00 MCV 88.7 fl (82-101) 04/04/25 18:00 MCH 29.0 pg (27-33) 04/04/25 18:00 MCHC 32.7 g/dL (30-55) 04/04/25 18:00 RDW 12.0 % (12.1-15.1) L 04/04/25 18:00 Plt Count 405 10^3/cmm (157-399) H 04/04/25 18:00 MPV 8.8 fL (7.4-10.4) 04/04/25 18:00 Neut % (Auto) 54.2 % 04/04/25 18:00 Lymph % (Auto) 29.6 % 04/04/25 18:00 [place] % (Auto) 8.3 % 04/04/25 18:00 Eos % (Auto) 7.0 % 04/04/25 18:00 Baso % (Auto) 0.7 % 04/04/25 18:00 Neut # (Auto) 3.19 10^3/uL (1.8-7.7) 04/04/25 18:00 Lymph # (Auto) 1.7 10^3/uL (0.8-4.8) 04/04/25 18:00 [place] # (Auto) 0.5 10^3/uL (0.2-0.9) 04/04/25 18:00 Eos # (Auto) 0.4 10^3/uL (0.0-0.8) 04/04/25 18:00 Baso # (Auto) 0.0 10^3/uL (0.0-0.1) 04/04/25 18:00 Nucleated RBC % (auto) 0 % 04/04/25 18:00 Nucleated RBCs # 0.0 /100WBC 04/04/25 18:00 Sodium 141 mmol/L (136-145) 04/04/25 18:00 Potassium 4.4 mmol/L (3.5-5.1) 04/04/25 18:00 Chloride 102 mmol/L (98-107) 04/04/25 18:00 Carbon Dioxide 27 mmol/L (22-29) 04/04/25 18:00 Anion Gap 16.4 (5-19) 04/04/25 18:00 BUN 10 mg/dL (6-20) 04/04/25 18:00 Creatinine 0.6 mg/dL (0.7-1.2) L 04/04/25 18:00 GFR Calculation 152.4 mL/min (90-130) H 04/04/25 18:00 Glucose 94 mg/dL (65-115) 04/04/25 18:00 Calculated Osmolality 291 mOsm/kg (285-295) 04/04/25 18:00 Calcium 9.1 mg/dL (8.5-10.5) 04/04/25 18:00 Total Bilirubin 0.4 mg/dL (0.15-1.2) 04/04/25 18:00 AST 10 U/L (0-40) 04/04/25 18:00 ALT 10 U/L (0-41) 04/04/25 18:00 Alkaline Phosphatase 99 U/L (40-130) 04/04/25 18:00 Total Protein 7.1 g/dL (6.6-8.7) 04/04/25 18:00 Albumin 4.5 g/dL (3.5-5.2) 04/04/25 18:00 Globulin 2.6 g/dL (1.3-4.6) 04/04/25 18:00 Urine Color Yellow (Yellow) 04/04/25 17:46 Urine Appearance Clear (CLEAR) 04/04/25 17:46 Urine pH 8.5 (5-7) A 04/04/25 17:46 Ur Specific [place] 1.008 (1.005-1.030) 04/04/25 17:46 Urine Protein Negative (Negative) 04/04/25 17:46 Urine Glucose (UA) Negative (Normal) 04/04/25 17:46 Urine Ketones Negative (Negative) 04/04/25 17:46 Urine Blood Negative (Negative) 04/04/25 17:46 Urine Nitrate Negative (Negative) 04/04/25 17:46 Urine Bilirubin Negative (Negative) 04/04/25 17:46 Urine Urobilinogen 0.2 mg/dL (Negative) 04/04/25 17:46 Ur Leukocyte Esterase Negative (Negative) 04/04/25 17:46 Urine RBC 0-2 /hpf (0-2) 04/04/25 17:46 Urine WBC 0-5 /hpf (0-5) 04/04/25 17:46 Ur Squamous Epith Cells 0-5 /hpf (0-5) 04/04/25 17:46 Amorphous Sediment Not Reportable 04/04/25 17:46 Urine Bacteria None seen /hpf (NONE) 04/04/25 17:46 Hyaline Casts 0-4 /lpf H 04/04/25 17:46 Salicylates < 0.3 mg/dL (3-10) L 04/04/25 18:00 Urine Opiates Screen Negative ng/mL (Negative) 04/04/25 17:46 Acetaminophen < 5.0 ug/mL (10-30) L 04/04/25 18:00 Ur Barbiturates Screen Negative ng/mL (Negative) 04/04/25 17:46 Ur Phencyclidine Scrn Negative ng/mL (Negative) 04/04/25 17:46 Ur Amphetamines Screen Positive ng/mL (Negative) H 04/04/25 17:46 U Benzodiazepines Scrn Negative ng/mL (Negative) 04/04/25 17:46 Urine Cocaine Screen Negative ng/mL (Negative) 04/04/25 17:46 U Marijuana (THC) Screen Negative ng/mL (Negative) 04/04/25 17:46 Ethyl Alcohol < 10 mg/dL (0-10) 04/04/25 18:00 No radiology studies performed this visit Discharge Plan Discharge Patient Disposition: Admitted As Inpatient Admit Provider: Alexandre Jarquin Clinical Impression: Acute psychosis Condition: Stable Coding Level of Care Code ED Industrial Relations Manager for Dale Dumont
[2025-04-04 19:50] VITALS: BP 128/79; PULSE 75; RESP 16; O2SAT 95
[2025-04-04 20:01] VITALS: BP 130/84; PULSE 103; RESP 18; TEMP 36.4; O2SAT 98
[2025-04-04] MEDS: hyDROXYzine 25 mg Capsule 50 MG PO (20:16)
[2025-04-04] MEDS: trazodone 50 mg Tablet PO (20:16)
[2025-04-04 20:20] VITALS: BP 130/84; PULSE 103; RESP 18; TEMP 36.4; O2SAT 98
--- NOTE | 2025-04-04 20:20 | PC.ADMIT ---
[email or web address] Admission Note: The patient,Chuck Jamison,34 y/o, was given written information regarding hospital policies, unit procedures and contact persons. Patient's smoking status: never smoked. Vital Signs - 8 hr 04/04/25 17:34 04/04/25 18:19 04/04/25 19:50 Temperature 97.7 F Pulse Rate 94 75 Respiratory Rate 16 18 16 Blood Pressure 150/96 128/79 Pulse Oximetry 97 99 95 Oxygen Delivery Method Room Air Room Air Pt. admitted from the ER on a 96 hr hold. Pt. stated he did not know why he was brought in here. He said he was having severe stomach pain when police arrived for him. Pt. stated that he sleeps on an air mattress and snakes got into his air mattress and has bitten him in several places. Pt. has some scattered bite barcenas that look to be insect bites on his lower legs. Pt.'s feet are very dirty, and pt.'s face/skin looks dark, but it looks like dirt. Pt. states he has autism. Pt. stated he gets Hydrocodone prescribed by his gastro Dr., Dr. Elizondo from [facility]. Signee looked up pt.'s home medications and found no records of any pain medications. Pt. asked again about his pain medication. Signee informed pt. no records had been found. Pt. wanted the DrNasir called about this stating he would not be able to sleep tonight without his pain medications. Signee informed pt. that he could address this with the DrNasir in the am. as he was seen in ER for stomach pain this evening. Pt. has no skin issues other than the insect bites on his lower extremities.
--- NOTE | 2025-04-04 20:25 | PC.NURSE ---
Pt. admitted from the ER on a 96 hr hold. Pt. stated he did not know why he was brought in here. He said he was having severe stomach pain when police arrived for him. Pt. stated that he sleeps on an air mattress and snakes got into his air mattress and has bitten him in several places. Pt. has some scattered bite barcenas that look to be insect bites on his lower legs. Pt.'s feet are very dirty, and pt.'s face/skin looks dark, but it looks like dirt. Pt. states he has autism. Pt. stated he gets Hydrocodone prescribed by his gastro Dr., Dr. Elizondo from [facility]. Signee looked up pt.'s home medications and found no records of any pain medications. Pt. asked again about his pain medication. Signee informed pt. no records had been found. Pt. wanted the DrNasir called about this stating he would not be able to sleep tonight without his pain medications. Signee informed pt. that he could address this with the DrNasir in the am. as he was seen in ER for stomach pain this evening. Pt. has no skin issues other than the insect bites on his lower extremities.
--- NOTE | 2025-04-04 21:05 | PC.NURSE ---
Pt. states he is still having abdominal pain rating it at a 10, although he presents at the nurses window with no grimace of face no groans or visuals s/s to indicate he is having pain. Pt. stated if he can not have any pain medication he wants an abdominal ultrasound done.
--- NOTE | 2025-04-04 21:06 | PC.NURSE ---
Pt. labs are in and pt. is Pos for meth.
--- NOTE | 2025-04-04 21:24 | PC.NURSE ---
Signee called Dr. Machado and informed him of pt. c/o of 1010 abdominal pain. Pt. wanting an abdominal ultrasound if he cannot get any pain medication. Dr. Machado ordered a medical consult for pt. Also, if pt. cont. to c/o abdominal pain or behavior escalates can have a KUB done. Pt. informed. a medical consult will be done.
--- NOTE | 2025-04-04 21:35 | PC.NURSE ---
Order enter for a medical consult. Dr. Monique called and informed of the consult and Dr. Machado phone number given to Dr. Monique. Dr. Monique stated he will call Dr. Machado back.
[2025-04-04] MEDS: OLANZapine 5 mg ODT PO (22:58)
--- NOTE | 2025-04-04 22:59 | PC.NURSE ---
pt. requested pain medication. signee informed pt. he could have Tylenol and Ibuprofen. Pt then requested a very powerful sleeping pill that would knock him out. Zyprexa was given.
--- NOTE | 2025-04-04 23:10 | PC.NURSE ---
Pt. came up to the nurses station while chewing on some animal cookies asking if there was something similar to an opiod that signee could given him. Signee replied no. Then pt. said what is that one shot you get from a dentist that is like an opiod. Signee replied Nothing like that could be given without an dr.'s order. Pt. then said I'm sorry, I'm just in a lot of pain. Then pt. went back to the dayroom and watched tv.
[2025-04-05 06:00] VITALS: BP 110/64; PULSE 72; RESP 17; TEMP 36.6; O2SAT 97
[2025-04-05 14:00] VITALS: BP 115/74; PULSE 75; RESP 16; TEMP 36.7; O2SAT 98
[2025-04-05] MEDS: hyDROXYzine 25 mg Capsule 50 MG PO ×2 (15:56→22:05)
[2025-04-05] MEDS: ondansetron 4 MG Tablet PO (16:28)
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
[2025-04-05] MEDS: OLANZapine 5 mg ODT PO (20:12)
[2025-04-05] MEDS: trazodone 50 mg Tablet PO ×2 (20:12→22:05)
[2025-04-05 20:29] VITALS: BP 119/79; PULSE 68; RESP 18; TEMP 37; O2SAT 98
[2025-04-06] MEDS: acetaminophen 325 mg Tablet 650 MG PO (00:12)
[2025-04-06] MEDS: haloperidol 5 mg Tablet PO (00:12)
--- NOTE | 2025-04-06 00:54 | XRR_ITS ---
PROCEDURE INFORMATION: Exam: XR Abdomen Exam date and time: 04/06/2025 2:10 AM Age: 35 years old Clinical indication: Abdominal pain; Generalized; Constipation; Additional info: Abdominal pain, either portable or in-dept is fine. TECHNIQUE: Imaging protocol: Radiologic exam of the abdomen. Views: Frontal supine view of the abdomen. 1 View. COMPARISON: CR XR chest 1V portable [id number] 09/05/2024 12:34 AM FINDINGS: Gastrointestinal tract: Constipation. No bowel dilation. Bones/joints: Unremarkable. XR/XR abdomen 1V* [id number] IMPRESSION: No acute findings.
[2025-04-06] MEDS: lidocaine 2% viscous 15 ML, aluminum-mag hydrox-simethicon 30 ML, sucralfate oral liq 1 GM PO (01:10)
[2025-04-06 06:00] VITALS: BP 118/77; PULSE 91; RESP 17; TEMP 36.9; O2SAT 98
[2025-04-06 08:15] LABS: Lipase 157 U/L (13-60)
[2025-04-06 08:16] LABS: Lactate (Lactic Acid level) 1.1 mmol/L (0.5-2.2)
[2025-04-06] MEDS: pantoprazole DR 40 mg Tablet PO ×2 (08:44→17:37)
[2025-04-06] MEDS: OLANZapine 5 mg ODT PO ×3 (08:44→23:02)
[2025-04-06 14:00] VITALS: BP 113/75; PULSE 71; RESP 16; TEMP 36.6; O2SAT 98
--- NOTE | 2025-04-06 17:12 | P.NPUPN_ITS ---
Subjective NPU 2 Subjective: 35-year-old male who presented with incr eased anxiety and possible psychosis with reports of having recurring thoughts about being bitten by snakes that he had seen while he was trying to go to sleep. Patient had admitted to using Adderall XR on a routine basis. Previous records had indicated a previous diagnosis of delusional disorder. He had continued report feeling worried about the snake bites that were present according to the patient. He had endorsed a myriad of complaints including abdominal discomfort. He had denied any constipation. He had continued to associate the the alleged snake bites with his problems with his stomach. He had reported feeling safe here and denied any auditory or visual hallucinations at this time. He had isolated himself on the milieu. Mental Status Exam 2 MSE Comments: The patient is a casually dressed white male who was alert and oriented to person, place, time, and situation. His hygiene appeared fair. His speech was regular in regards to rate, rhythm, tone, and prosody. His eye contact was fair. There was no evidence of any abnormal involuntary motor movements, tics, or tremors appreciated. His mood was described as worried. His affect was mood congruent and anxious. His thought process was linear, logical, and goal- directed. He denied any auditory or visual hallucinations. He had endorsed concern that something was wrong with him physically as he appeared to associate his reported snake bites with some form of abdominal discomfort as he had requested to be evaluated for his abdominal problems. He denied any suicidal or homicidal ideation. His recent and remote memory were grossly intact. His attention span appeared poor. His insight is limited. His judgment is limited. His impulse control appeared poor. He had continued to perseverate on his somatic complaints. His fund of knowledge was poor. His intelligence appeared commensurate with borderline intellectual functioning. Cognitive rigidity was present. Vitals/I&O/Wt Last Vital Signs Temp 98 F 04/06/25 14:00 Pulse 71 04/06/25 14:00 Resp 16 04/06/25 14:00 BP 113/75 04/06/25 14:00 Pulse Ox 98 04/06/25 14:00 O2 Del Method Room Air 04/06/25 06:00 Weight last 48 hrs Weight 72.575 kg Data NPU 04/04/25 18:00 04/04/25 18:00 A&P Assessment and plan (1) Generalized anxiety disorder: (2) Acute psychosis: (3) ADHD (attention deficit hyperactivity disorder), combined type: (4) Autistic disorder: Plan 35-year-old male history of autism, and ADHD along with borderline intellectual functioning admitted with patient appearing to perseverate about having been bitten by snakes and requesting further evaluation as he associates this with some sort of abdominal illness. #1. Will attempt to gather collateral information #2. TO?15-minute checks. #3 Still perseverating over abdominal discomfort, does not appear to be responding to internal stimuli. #4. Engage patient in individual, group and milieu therapy. PDMP PDMP Reviewed: Not Reviewed Involuntary Hold Information 2 Hold Status: Legal Status: 96 Hour Hold Date/Time Hold Expires: 04/08/25 [id number] Attestations NPU 2 Medical Necessity Statement*: Inpatient hospitalization is medically necessary and deemed to be the clinically appropriate intervention at this time. Medications will be adjusted and initiated as indicated.? The patient?s likely length of stay is 4-6 days. ? Coding Level of Care Code Acute Code for [facility] Fwd Diagnoses Generalized anxiety disorder F41.1 Acute psychosis F23 ADHD (attention deficit hyperactivity disorder), combined type F90.2 Autistic disorder F84.0
[2025-04-06 20:24] VITALS: BP 109/71; PULSE 82; RESP 17; TEMP 36.4; O2SAT 96
[2025-04-06] MEDS: hyDROXYzine 25 mg Capsule 50 MG PO (20:31)
[2025-04-06] MEDS: trazodone 50 mg Tablet PO ×2 (20:31→23:02)
[2025-04-07 06:00] VITALS: BP 113/77; PULSE 88; RESP 16; TEMP 36.7; O2SAT 96
[2025-04-07] MEDS: pantoprazole DR 40 mg Tablet PO ×2 (08:44→17:27)
[2025-04-07] MEDS: OLANZapine 5 mg ODT PO ×2 (08:44→16:44)
[2025-04-07 14:00] VITALS: BP 112/75; PULSE 96; RESP 14; TEMP 36.5; O2SAT 96
--- NOTE | 2025-04-07 17:13 | P.NPUPN_ITS ---
Subjective NPU 2 Subjective: 35-year-old male who presented with incr eased anxiety and possible psychosis with reports of having recurring thoughts about being bitten by snakes that he had seen while he was trying to go to sleep. The patient reports that he was feeling better. He continued to report at certain times of the day having 10 out of 10 pain in his stomach while laying in bed and appearing to be in no acute distress. He had acknowledged that it was possible that he may have been mistaken about having snake bites today. The patient had reported routine use of Adderall and had denied having any previous problems with reality testing. He had reported no side effects from medication given to him including Zyprexa as needed as he had reported that it had been helpful for his anxiety . He had isolated himself in his room. He had reported no abdominal discomfort on interview later in the day. He had not appeared as preoccupied with receiving any pain medications particularly no request for opiates. Mental Status Exam 2 MSE Comments: The patient is a casually dressed white male who was alert and oriented to person, place, time, and situation. His hygiene appeared fair. His speech was regular in regards to rate, rhythm, tone, and prosody. His eye contact was fair. There was no evidence of any abnormal involuntary motor movements, tics, or tremors appreciated. His mood was described as okay. His affect was mood congruent and anxious. His thought process was linear, logical, and goal- directed. He denied any auditory or visual hallucinations. He had endorsed concern that something was wrong with him physically in his stomach but questioned his previous relating the bites to his abdominal discomfort. He denied any suicidal or homicidal ideation. His recent and remote memory were grossly intact. His attention span appeared poor. His insight is limited. His judgment is limited. His impulse control appeared poor. His fund of knowledge was poor. His intelligence appeared commensurate with borderline intellectual functioning. Cognitive rigidity was present. Vitals/I&O/Wt Last Vital Signs Temp 97.7 F 04/07/25 14:00 Pulse 96 04/07/25 14:00 Resp 14 04/07/25 14:00 BP 112/75 04/07/25 14:00 Pulse Ox 96 04/07/25 14:00 O2 Del Method Room Air 04/07/25 14:00 Data NPU 04/04/25 18:00 04/04/25 18:00 A&P Assessment and plan (1) Generalized anxiety disorder: (2) Acute psychosis: (3) ADHD (attention deficit hyperactivity disorder), combined type: (4) Autistic disorder: Plan 35-year-old male history of autism, and ADHD along with borderline intellectual functioning admitted with patient appearing to perseverate about having been bitten by snakes and requesting further evaluation as he associates this with some sort of abdominal illness. #1. Holding Stimulant, curious if this may have been contributing to psychosis. Patient also perseverating less on somatic complaints with additional zyprexa prescribed. #2. TO?15-minute checks. #3 Still perseverating over abdominal discomfort, does not appear to be responding to internal stimuli. #4. Engage patient in individual, group and milieu therapy. PDMP PDMP Reviewed: Not Reviewed Involuntary Hold Information 2 Hold Status: Legal Status: 96 Hour Hold Date/Time Hold Expires: 04/08/25 [id number] Attestations NPU 2 Medical Necessity Statement*: Inpatient hospitalization is medically necessary and deemed to be the clinically appropriate intervention at this time. Medications will be adjusted and initiated as indicated.? The patient?s likely length of stay is 3-4 days. ? Coding Level of Care Code Acute Code for [facility] Fwd Diagnoses Generalized anxiety disorder F41.1 Acute psychosis F23 ADHD (attention deficit hyperactivity disorder), combined type F90.2 Autistic disorder F84.0
[2025-04-07 19:39] VITALS: BP 125/78; PULSE 100; RESP 18; TEMP 36.8; O2SAT 95
[2025-04-07] MEDS: hyDROXYzine 25 mg Capsule 50 MG PO (20:13)
[2025-04-07] MEDS: OLANZapine 5 mg TABLET PO (20:13)
[2025-04-07] MEDS: trazodone 50 mg Tablet PO ×2 (20:13→22:18)
[2025-04-07] MEDS: haloperidol 5 mg Tablet PO (21:18)
[2025-04-08] MEDS: alum-mag-hydroxide-sime 30 mL UDC PO ×2 (00:05→03:55)
[2025-04-08] MEDS: OLANZapine 5 mg ODT PO (02:18)
[2025-04-08] MEDS: ondansetron 4 MG Tablet PO (02:18)
[2025-04-08] MEDS: hyDROXYzine 25 mg Capsule 50 MG PO (02:19)
[2025-04-08] MEDS: acetaminophen 325 mg Tablet 650 MG PO (02:19)
[2025-04-08] MEDS: haloperidol 5 mg Tablet PO (03:30)
[2025-04-08 06:00] VITALS: BP 120/80; PULSE 80; RESP 16; TEMP 36.7; O2SAT 97
[2025-04-08] MEDS: pantoprazole DR 40 mg Tablet PO (09:05)
[2025-04-08 14:45] VITALS: BP 117/77; PULSE 92; RESP 16; TEMP 36.8; O2SAT 96
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
[2025-04-08 15:16] VITALS: BP 117/77; PULSE 92; RESP 16; TEMP 36.8; O2SAT 96
== END 2025-04-08 16:01 | disposition home or self-care (01) | DRG 885 ==
LOC: ER 18:50 → NP 18:51
PROVIDERS: Internal Medicine; Admitting Provider Psychiatry & Neurology Psychiatry; Emergency Provider Student in an Organized Health Care Education/Training Program; Visit Provider Psychiatry & Neurology Psychiatry
DX: F23 Brief psychotic disorder (principal); F41.1 Generalized anxiety disorder; F90.2 Attention-deficit hyperactivity disorder, combined type; F84.0 Autistic disorder; F43.12 Post-traumatic stress disorder, chronic; R41.83 Borderline intellectual functioning; K21.9 Gastro-esophageal reflux disease without esophagitis; F15.90 Other stimulant use, unspecified, uncomplicated; R10.9 Unspecified abdominal pain; Z79.891 Long term (current) use of opiate analgesic
CPT/HCPCS: 36415; 74018; 80053; 80306; 80307; 81001; 83605; 83690; 85025; 97165; 99285; J9999; Q0162

== ENCOUNTER → 2025-04-19 18:36 | Outpatient (BNVA) | payer MEDICAID, SELFPAY | PROVIDERS: PCP Family Medicine; Visit Provider Registered Nurse Neonatal Intensive Care | DX: Z20.2 Contact with and (suspected) exposure to infections with a predominantly sexual mode of transmission (principal) | CPT/HCPCS: 87491; 87591 ==

== ENCOUNTER 2025-04-24 04:36 | Emergency (ER) | payer MEDICAID, SELFPAY ==
[2025-04-24 04:41] VITALS: BP 139/91; PULSE 92; RESP 20; TEMP 37.1; O2SAT 97; BMI 22.9
--- NOTE | 2025-04-24 05:50 | W.ED.ANIMALB ---
HPI - Animal Bite General: Chief Complaint: Animal Bite Stated Complaint: SNAKE BITE Time Seen by Provider: 04/24/25 05:47 History of Present Illness: The patient presents to the emergency department with a reported snake bite on the left buttock. The patient states they were sleeping when a snake came out of the wall and bit them on the buttock. They felt a sensation like someone slapped their buttock and saw the snake slither back into the wall. The patient did not see what kind of snake it was. They mention this has happened before, with snakes getting into their bed, prompting them to get a new bed. The patient believes the presence of dogs in the area may be attracting the snakes. The patient reports numbness and pain in their feet and hands following the bite. However, they acknowledge having recently received a tick bite that was really bad, painful, and feels infected, which may be contributing to these symptoms. The patient expresses concern about their symptoms and asks if blood tests should be performed to check for any underlying issues. They also mention a history of snake encounters in their living environment, indicating ongoing exposure to potential wildlife hazards. Related Data Previous Rx's ?Medication ?Instructions ?Recorded loratadine 10 mg tablet 10 mg PO DAILY PRN allergic 10/29/23 symptoms #30 tabs pantoprazole 20 mg tablet,delayed 20 mg PO DAILY PRN stomack/throat 03/17/24 release pain #30 tabs buspirone 10 mg tablet 10 mg PO BID #60 tabs 01/05/25 hydroxyzine HCl 50 mg tablet 50 mg PO QID PRN anxiety #120 tabs 01/05/25 trazodone 50 mg tablet 100 mg (2 x 50 mg) PO .HS PRN 01/05/25 insomnia #60 tabs diphenhydramine HCl 25 mg capsule 25 mg PO Q8H PRN allergic reaction 03/30/25 (Benadryl) #30 caps atomoxetine 40 mg capsule 40 mg PO DAILY 30 days #30 caps 04/08/25 (Strattera) olanzapine 5 mg tablet 5 mg PO BEDTIME 30 days #30 tabs 04/08/25 doxycycline hyclate 150 mg 100 mg (0.6667 x 150 mg) PO BID 10 04/24/25 tablet,delayed release days #14 tabs Allergies Allergy/AdvReac Type Severity Reaction Status Date / Time Alpha-Gal Allergy Intermediate ADR-Gastrointestinal Verified 04/04/25 17:44 (Ocbhdmdwm-Yuucu-6,3-Gala Upset beef derived (bovine) Allergy Unknown ALGY-Difficulty Verified 04/04/25 17:44 Breathing/Hives Pork/Porcine Containing Allergy ALGY-Rash Verified 04/04/25 17:44 Products sheep derived (ovine) Allergy ALGY-Hives Verified 04/04/25 17:44 Review of Systems General: Reports: 10 or more systems reviewed and unremarkable except in HPI and below PFSH ED PFSH: Medical History Insect bite, infected Delusional disorder Post-traumatic stress disorder, chronic Autism spectrum disorder Attention deficit disorder (ADD) diagnosed as a child Borderline intellectual disability Testing on 11/03/18 reveals IQ 75 Allergy to uitnoqfhz-oyzle-3,3-galactose 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 GERD (gastroesophageal reflux disease) Psychiatric care Family History Mother CAD (coronary artery disease) Cancer lymphatic Denies family history of Diabetes Clotting disorder Dementia Hyperlipidemia Chronic kidney disease (CKD) Anesthesia complication Bleeding disorder Lung disease Hypertension Stroke Social History Smoking and tobacco/nicotine status: never used tobacco/nicotine Alcohol intake: never Substance/Drug Use: never Adopted: No Caregiver/support person: No Lives independently: Yes Housing: Apartment Marital status: Single Highest education level completed: High School Graduate service: No Current occupational status: employed Current occupation: Self employeed Current occupational exposures/hazards: No Pets and animals: Yes Pets & animals: dog(s) Leisure activites: sports, music, games, fishing and other Leisure activities details: snow boarding Sexually active: No Do you think of yourself as: Straight/Heterosexual Current gender identity: Male Special guille needs: No Agree to transfusion: Yes Physical Exam Const: COMMON NORMALS: no acute distress, patient oriented x3, healthy appearing, alert and well nourished HENMT: COMMON NORMALS: normocephalic HEAD & SCALP: normocephalic Eye: COMMON NORMALS: EOMs intact bilaterally Neck/C-Spine: COMMON NORMALS: full ROM and supple Resp: COMMON NORMALS: normal respiratory effort, No retractions and clear to auscultation bilaterally AUSCULTATION: clear to auscultation bilaterally Cardio: COMMON NORMALS: regular rate, regular rhythm, No gallops present (Cardio) and No murmurs present (Cardio) RATE: regular rate RHYTHM: regular rhythm GI: COMMON NORMALS: Soft to palpation and non-tender PALPATION: Yes Soft to palpation Extremity: GENERAL: Yes normal exam except as noted Neuro: COMMON NORMALS: patient oriented x3 SENSORIUM/ORIENTATION: Yes alert Skin: OTHER: Tick bite with surrounding erythema no erythremia migrans Course Vital Signs: Vital signs: Vital Signs Temperature 98.7 F 04/24/25 04:41 Pulse Rate 92 04/24/25 04:41 Respiratory Rate 20 H 04/24/25 04:41 Blood Pressure 139/91 04/24/25 04:41 Pulse Oximetry 97 04/24/25 04:41 MDM - Animal Bite Medical Decision Making 35-year-old male presents to the emergency department for concern of a snake bite next to his anus. On physical exam there is no signs of a bite or wounds. There does appear to be some erythema likely secondary to his scratching at his skin. He does however have a tick bite on the left side of his torso with surrounding erythema. Started the patient on doxycycline. Patient referred back to his primary care for the tingling sensation that he started feeling in his hands and feet. Return precautions discussed and the patient was discharged home in stable condition. No radiology studies performed this visit Discharge Plan Discharge Patient Disposition: Home Clinical Impression: Tick bite of chest wall Qualifiers: Encounter type: initial encounter Laterality: left Qualified Code(s): S20.362A - Insect bite (nonvenomous) of left front wall of thorax, initial encounter Condition: Stable Prescriptions: New doxycycline hyclate 150 mg tablet,delayed release (DR/EC) 100 mg PO BID 10 Days Qty: 14 0RF No Action loratadine 10 mg tablet 10 mg PO DAILY PRN (Reason: allergic symptoms) Qty: 30 5RF pantoprazole 20 mg tablet,delayed release (DR/EC) 20 mg PO DAILY PRN (Reason: stomack/throat pain) Qty: 30 3RF trazodone 50 mg tablet 100 mg PO .HS PRN (Reason: insomnia) Qty: 60 2RF hydroxyzine HCl 50 mg tablet 50 mg PO QID PRN (Reason: anxiety) Qty: 120 2RF buspirone 10 mg tablet 10 mg PO BID Qty: 60 2RF olanzapine 5 mg Tablet 5 mg PO BEDTIME 30 Days Qty: 30 1RF atomoxetine [Strattera] 40 mg capsule 40 mg PO DAILY 30 Days Qty: 30 1RF Rx Instructions: take with food. diphenhydramine HCl [Benadryl] 25 mg capsule 25 mg PO Q8H PRN (Reason: allergic reaction) Qty: 30 0RF Discharge Orders: Discharge ED (Routine); Ordered 04/24/25 Ordered By: Chris Rodrigez Referrals: Mckay Singletary MD [Primary Care Provider, Family Practice] Discharge Diet: Advance as tolerated Discharge Activity: Resume usual activity Patient Instructions: Opioid Safety, Pain Management Activity Restrictions/Additional Instructions: Take your antibiotics with food as it can be very hard on your stomach. Start a probiotic to help with antibiotic associated diarrhea. Follow-up with your primary care doctor regarding upper and lower extremity pain. Return to the emergency department with any new or worsening symptoms. Print Language: Guyanese Coding Level of Care Code ED Bead Wire Insulator for [facility]
[2025-04-24 06:22] VITALS: BP 139/91; PULSE 76; RESP 16; O2SAT 96
== END 2025-04-24 06:24 | disposition home or self-care (01) ==
PROVIDERS: Emergency Provider General Practice; PCP Family Medicine
DX: S20.362A Insect bite (nonvenomous) of left front wall of thorax, initial encounter (principal); T63.001A Toxic effect of unspecified snake venom, accidental (unintentional), initial encounter; W57.XXXA Bitten or stung by nonvenomous insect and other nonvenomous arthropods, initial encounter
CPT/HCPCS: 99283

== ENCOUNTER → 2025-11-20 17:16 | Outpatient (BNVA) | payer MEDICAID, SELFPAY | PROVIDERS: PCP Family Medicine | DX: L29.0 Pruritus ani (principal) | CPT/HCPCS: 87177; 87209 ==